=== PATIENT | male | born 1990 | race Two or more races ===

== ENCOUNTER 2020-07-23 22:11 | Inpatient (IN) | payer OTHER ==
[2020-07-23 22:35] VITALS: BMI 18.6
--- NOTE | 2020-07-23 22:50 | HP ---
COWS - Scale Resting Pulse: 0= [place] 80 or Below Sweatin= Chills/Flushing Restless Observation: 0= Sits Still Pupil Size: 0= Normal to Room Light Bone or Joint Aches: 4=Acute Joint/Muscle Pain Runny Nose/ Eye Tearin= Nasal Congestion GI Upset > 30mins: 0= None Tremor Observation: 0= None Yawning Observation: 1= 1-2x During Session Anxiety or Irritability: 2=Irritable/Anxious Goose Flesh Skin: 0=Smooth Skin COWS Score: 9 CIWA Score Nausea/Vomitin-No Nausea/No Vomiting Muscle Tremors: None Anxiety: 4-Mod. Anxious/Guarded Agitation: 3 Paroxysmal Sweats: 3 Orientation: 0-Oriented Tacttile Disturbances: 0-None Auditory Disturbances: 0-None Visual Disturbances: 0-None Headache: 5-Severe (10/10) CIWA-Ar Total Score: 15 - Admission Criteria OAS Guidelines: Admission for Medically Managed Detox: Requires at least one of the followin. CIWA greater than 12 2. Seizures within the past 24 hours 3. Delirium tremens within the past 24 hours 4. Hallucinations within the past 24 hours 5. Acute intervention needed for co occurring medical disorder 6. Acute intervention needed for co occurring psychiatric disorder 7. Severe withdrawal that cannot be handled at a lower level of care (continued vomiting, continued diarrhea, abnormal vital signs) requiring intravenous medication and/or fluids 8. Patient presents the following: CIWA greater than 12 Admission Criteria Met: Admission criteria met Admission ROS [facility] Chief Complaint: C/O WITHDRAWAL SX'S. SEEKING HEROIN AND XANAX DETOX. History of Present Illness: CLIENT IS SELF REFERRED. FIRST ADMISSION. PRESENTS WITH C/O WITHDRAWAL SX'S. CLIENT RPEORTS XANAX AND HEROIN DAILY. LAST USE THIS MORNING. DENIES IVDU, DRUG OVERDOSE, BLACKOUTS, SEIZURES. HX/O DETOX 1. "YEARS AGO". HE ALSO ABUSES COCA ND CANNABIS. DENIES ANY CLEAN TIME IN THE PAST YEAR, LIVES WITH FAMILY, UNEMPLOYED, DENIES LEGALS Exam Limitations: No Limitations - Ebola screening Have you traveled outside of the country in the last 21 days: No Have you had contact with anyone from an Ebola affected area: No Have you been sick,other than usual withdrawal symptoms: No Do you have a fever: No - Review of Systems Constitutional: Chills, Loss of Appetite, Malaise, Night Sweats, Changes in sleep, Unintentional Wgt. Loss EENT: reports: Nose Congestion Respiratory: reports: No Symptoms reported Cardiac: reports: No Symptoms Reported GI: reports: Poor Appetite : reports: No Symptoms Reported Musculoskeletal: reports: Back Pain Integumentary: reports: Flushing, Sweating Neuro: reports: Headache Endocrine: reports: No Symptoms Reported Hematology: reports: No Symptoms Reported Psychiatric: reports: Orientated x3, Anxious Other Systems: Reviewed and Negative Patient History - Patient Medical History Hx Anemia: No Hx Asthma: Yes Hx Chronic Obstructive Pulmonary Disease (COPD): No Hx Cancer: No Hx Cardiac Disorders: No Hx Congestive Heart Failure: No Hx Hypertension: No Hx Hypercholesterolemia: No Hx Pacemaker: No HX Cerebrovascular Accident: No Hx Seizures: No Hx Dementia: No Hx Diabetes: No Hx Gastrointestinal Disorders: No Hx Liver Disease: No Hx Genitourinary Disorders: No Hx Sexually Transmitted Disorders: Yes (CHLAMYDIA- TX'ED) Hx Renal Disease (ESRD): No Hx Thyroid Disease: No Hx Human Immunodeficiency Virus (HIV): No Hx Hepatitis C: No Hx Depression: No Hx Suicide Attempt: No Hx Bipolar Disorder: No Hx Schizophrenia: No Other Medical History: DENIES - Patient Surgical History Past Surgical History: No - PPD History Previous Implant?: Yes Documented Results: Negative w/o proof Implanted On Prior [facility] Admission?: No PPD to be Administered?: Yes - Smoking Cessation Smoking history: Current every day smoker Have you smoked in the past 12 months: Yes Aproximately how many cigarettes per day: 6 Cigars Per Day: 0 Hx Chewing Tobacco Use: No Initiated information on smoking cessation: Yes 'Breaking Loose' booklet given: 07/23/20 - Substance & Tx. History Hx Alcohol Use: No Hx Substance Use: Yes Substance Use Type: Cocaine, Heroin, Marijuana, Tranquilizers (XANAX) Hx Substance Use Treatment: Yes ([facility]) - Substances abused Heroin Substance route: Inhalation Frequency: Daily Amount used: 3GM Age of first use: 28 Date of last use: 07/23/20 Alprazolam (Xanax) Substance route: Oral Frequency: Daily Amount used: 6MG Age of first use: 29 Date of last use: 07/23/20 Cocaine Substance route: Inhalation Frequency: 3-6 times per week (3X) Amount used: 1/2 GM Age of first use: 27 Date of last use: 07/21/20 Marijuana/Hashish Substance route: Smoking Frequency: 1-3 times last 30 days (1) Amount used: 1 BLUNT Age of first use: 11 Date of last use: 07/22/20 Admission Physical Exam [facility] - Vital Signs Vital Signs: Vital Signs - 24 hr 07/23/20 22:33 Temperature 97 F L Pulse Rate 78 Respiratory 18 Rate Blood Pressure 114/72 - Physical General Appearance: Yes: Moderate Distress, Sweating, Anxious HEENTM: Yes: EOMI, Normocephalic, Normal Voice, ALTAGRACIA, Pharynx Normal, Nasal Congestion, Rhinorrhea Respiratory: Yes: Chest Non-Tender, Lungs Clear, Normal Breath Sounds, No Respiratory Distress, No Accessory Muscle Use Neck: Yes: No masses,lesions,Nodules, Supple, Trachea in good position Breast: Yes: Breasts Symetrical Cardiology: Yes: Regular Rhythm, S1, S2, Tachycardia Abdominal: Yes: Normal Bowel Sounds, Non Tender, Flat, Soft Genitourinary: Yes: Within Normal Limits Back: Yes: Normal Inspection Musculoskeletal: Yes: full range of Motion, Gait Steady Extremities: Yes: Normal Capillary Refill, Normal Inspection, Normal Range of Motion, Non-Tender Neurological: Yes: Fully Oriented, Alert, Motor Strength 5/5, Depressed Affect Integumentary: Yes: Clammy Lymphatic: Yes: Within Normal Limits - Diagnostic (1) Opioid dependence with withdrawal Current Visit: Yes Status: Acute (2) Cannabis dependence, uncomplicated Current Visit: Yes Status: Acute (3) Sedative, hypnotic or anxiolytic dependence with withdrawal, uncomplicated Current Visit: Yes Status: Acute (4) Cocaine dependence, uncomplicated Current Visit: Yes Status: Acute (5) Asthma Current Visit: Yes Status: Chronic Qualifiers: Asthma severity: mild Asthma persistence: intermittent Asthma complication type: uncomplicated Qualified Code(s): J45.20 - Mild intermittent asthma, uncomplicated (6) Nicotine dependence Current Visit: Yes Status: Chronic Qualifiers: Nicotine product type: cigarettes Substance use status: uncomplicated Qualified Code(s): F17.210 - Nicotine dependence, cigarettes, uncomplicated (7) Depressed affect Current Visit: Yes Status: Acute Cleared for Admission [facility] - Detox or Rehab [facility] Level of Care: Medically Managed Detox Regimen/Protocol: Methadone/Valium Claeared for Rehab Admission: No Breathalyzer - Breathalyzer Breathalyzer: 0 Urine Drug Screen - Test Device Lot number: [id number] Expiration date: 02/23/22 - Control Is test valid?: Yes - Results Drug screen NEGATIVE: No Urine drug screen results: THC-Marijuana, SAMMY-Cocaine, FEN-Fentanyl, MOP- Opiates, BZO-Benzodiazepines Inpatient Rehab Admission - Rehab Decision to Admit Inpatient rehab admission?: No
[2020-07-23] MEDS ORDERED: METHADONE HCL 10 MG TABLET (FOR DETOX USE ONLY) PO ONE (22:56)
[2020-07-23] MEDS ORDERED: MAG HYDROX/AL HYDROX/SIMETH 30 ML UNIT-DOSE CUP PO PRN (22:56)
[2020-07-23] MEDS ORDERED: IBUPROFEN 400 MG TABLET (FP) PO PRN (22:56)
[2020-07-23] MEDS ORDERED: NICOTINE POLACRILEX 2 MG GUM BUC PRN (22:56)
[2020-07-23] MEDS ORDERED: MAGNESIUM CITRATE 300 ML BOTTLE PO PRN (22:56)
[2020-07-23] MEDS ORDERED: guaiFENesin 200 MG/10 ML 10 ML UNIT-DOSE CUPS PO PRN (22:56)
[2020-07-23] MEDS ORDERED: NALOXONE HCL 0.4 MG/ML VIAL IM PRN (22:56)
[2020-07-23] MEDS ORDERED: MAGNESIUM HYDROX 2400MG/30ML ORAL SUSPENSION 30 ML CUP PO PRN (22:56)
[2020-07-23] MEDS ORDERED: DICYCLOMINE HCL 10 MG CAPSULE PO PRN (22:56)
[2020-07-23] MEDS ORDERED: MENTHOL/PHENOL 1 EACH UD MM PRN (22:56)
[2020-07-23] MEDS ORDERED: ACETAMINOPHEN 325 MG TABLET (FP) PO PRN ×2 (22:56)
[2020-07-23] MEDS ORDERED: cloNIDine HCL 0.1 MG TABLET PO PRN (22:56)
[2020-07-23] MEDS ORDERED: hydrOXYzine PAMOATE 25 MG CAPSULE (FP) PO PRN (22:56)
[2020-07-23] MEDS ORDERED: BISMUTH SUBSALICYLATE 524 MG/30 ML UD PO PRN (22:56)
[2020-07-23] MEDS ORDERED: P-EPHED 60MG/TRIPROLIDI 2.5MG TABLET PO PRN (22:56)
[2020-07-24] MEDS: diazePAM 5 MG TABLET PO SCH ×4 (01:15→22:17)
[2020-07-24] MEDS ORDERED: METHADONE HCL 10 MG TABLET (FOR DETOX USE ONLY) ONE (08:52)
[2020-07-24] MEDS ORDERED: METHADONE HCL 5 MG TABLET (FOR DETOX USE ONLY) ONE (08:52)
--- NOTE | 2020-07-24 08:55 | CONSULT ---
[facility] Psychiatric Consult - Data Date of interview: 07/24/20 Admission source: Self-referred Identifying data: Mr Hwang is a 30 years old single male, unemployed with no source, living with his mother seeking detox treatment for opioid, cocaine, benzodiazepine and cannabis Substance Abuse History: Reports history of heroin, cocaine, xanax and marijuana use. Refer to addiction counselor's summary for further information Medical History: Significant for bronchial asthma and history of treatment for chlamydia. Smokes 6 cigarettes daily Psychiatric History: This is patient's first admission to this facility. He denies history of previous psychiatric treatment, psychiatric hospitalization or suicide. At present, reports sleeping poorly Physical/Sexual Abuse/Trauma History: Denies history of abuse as a child or DV relationship as an adult Mental Status Exam - Mental Status Exam Alert and Oriented to: Time, Place, Person Cognitive Function: Fair Patient Appearance: Well Groomed Mood: Hopeful, Euthymic Affect: Appropriate Patient Behavior: Cooperative Speech Pattern: Clear Voice Loudness: Normal Thought Process: Intact Thought Disorder: Not Present Hallucinations: Denies Suicidal Ideation: Denies Homicidal Ideation: Denies Insight/Judgement: Poor Sleep: Poorly Appetite: Good Muscle strength/Tone: Normal Gait/Station: Normal Psychiatric Findings - Problem List ([place] 1, 2,3) (1) Substance-induced sleep disorder Current Visit: Yes Status: Acute (2) Opioid dependence with withdrawal Current Visit: Yes Status: Acute (3) Sedative, hypnotic or anxiolytic dependence with withdrawal, uncomplicated Current Visit: Yes Status: Acute (4) Cocaine abuse Current Visit: Yes Status: Acute (5) Cannabis abuse Current Visit: Yes Status: Acute (6) Nicotine dependence Current Visit: Yes Status: Chronic Qualifiers: Nicotine product type: cigarettes Substance use status: uncomplicated Qualified Code(s): F17.210 - Nicotine dependence, cigarettes, uncomplicated (7) Asthma Current Visit: Yes Status: Chronic Qualifiers: Asthma severity: mild Asthma persistence: intermittent Asthma complication type: uncomplicated Qualified Code(s): J45.20 - Mild intermittent asthma, uncomplicated - Initial Treatment Plan Initial Treatment Plan: 1) Start Melatonin 10 mg po HS prn for insomnia. 2) Continue inpatient detoxification
[2020-07-24] MEDS ORDERED: LOPERAMIDE HCL 2 MG CAPSULE PO ONE (09:43)
[2020-07-24] MEDS ORDERED: ALBUTEROL SO4 HFA INHALER IH PRN (09:47)
--- NOTE | 2020-07-24 09:47 | PN ---
S CIWA - CIWA Score Nausea/Vomitin-Mild Nausea/No Vomiting Muscle Tremors: 2 Anxiety: 2 Agitation: 0-Normal Activity Paroxysmal Sweats: 2 Orientation: 0-Oriented Tacttile Disturbances: 1-Very Mild Itch/Numbness Auditory Disturbances: 0-None Visual Disturbances: 2-Mild Sensitivity Headache: 2-Mild CIWA-Ar Total Score: 12 S COWS - Scale Resting Pulse: 0= [place] 80 or Below Sweatin= Chills/Flushing Restless Observation: 0= Sits Still Pupil Size: 1= Pupils >than Normal Bone or Joint Aches: 1= Mild Discomfort Runny Nose/ Eye Tearin= None GI Upset > 30mins: 2= Nausea/Diarrhea Tremor Observation of Outstretched Hands: 2= Slight Tremor Visible Yawning Observation: 0= None Anxiety or Irritability: 0= None Goose Flesh Skin: 3=Piloerection COWS Score: 10 S Progress Note (SOAP) Subjective: 30 years old male was admitted on 07/23/20 for benzo and opiate withdrawal sx management treating with valium and methadone detox regiments reports diarrhea x 2 imodium 4 mg po x 1 medical history of asthma resume ventolin prn bmi 18.6 ensure 120 ml po tid with meals Objective: 07/24/20 09:49 Vital Signs - 24 hr 07/23/20 07/23/20 07/24/20 22:33 23:12 06:13 Temperature 97 F L 97 F L 97.4 F L Pulse Rate 78 78 68 Respiratory 18 18 18 Rate Blood Pressure 114/72 114/72 98/61 O2 Sat by Pulse 96 Oximetry (%) 07/24/20 09:00 Temperature 98.2 F Pulse Rate 73 Respiratory 18 Rate Blood Pressure 96/59 L O2 Sat by Pulse Oximetry (%) 07/24/20 09:50 lab pending 07/24/20 09:51 low bp discontinue clonidine Assessment: 07/24/20 09:52 benzo and opiate withdrawal 07/24/20 09:53 hypotension Plan: valium and methadone regiments discontinue clonidine
[2020-07-24] MEDS ORDERED: METHADONE (DETOX) 20 MG, METHADONE (DETOX) 5 MG PO ONE (10:00)
[2020-07-24] MEDS: NICOTINE 14 MG/24 HOURS TOPICAL PATCH TD SCH (10:15)
[2020-07-24] MEDS: PRENATAL VITAMINS W/ FOLIC ACID TABLET (FP) PO SCH (10:15)
[2020-07-24 11:14] LABS: ALBUMIN 3.9 g/dl (3.4-5.0); BILIRUBIN,TOTAL 0.5 mg/dL (0.2-1); BLOOD UREA NITROGEN 13.8 mg/dL (7-18); CALCIUM 9.5 mg/dL (8.5-10.1); CREATININE 0.9 mg/dL (0.55-1.3); POTASSIUM 4.3 mmol/L (3.5-5.1); TOT PROT 7.6 g/dl (6.4-8.2)
[2020-07-24 11:35] LABS: HEMOGLOBIN 14.4 GM/dL (11.7-16.9); MCH 30.9 pg (25.7-33.7); MCHC 33.5 g/dl (32.0-35.9); MEAN CELL VOLUME 92.3 fl (80-96); MEAN PLT VOLUME 11.9 fl (7.5-11.1); PLATELET COUNT 185 K/MM3 (134-434); RBC 4.66 M/mm3 (4.00-5.60); RDW 13.1 % (11.9-15.9); WHITE BLOOD COUNT 5.9 K/mm3 (4.0-10.0)
--- NOTE | 2020-07-24 12:46 | EKG ---
Test Reason : Blood Pressure : / mmHG Vent. Rate : 071 BPM Atrial Rate : 071 BPM P-R Int : 148 ms QRS Dur : 092 ms QT Int : 404 ms P-R-T Axes : 060 -45 063 degrees QTc Int : 439 ms NORMAL SINUS RHYTHM LEFT ANTERIOR FASCICULAR BLOCK NONSPECIFIC ST ABNORMALITY ABNORMAL ECG NO PREVIOUS ECGS AVAILABLE Confirmed by Emeka Rene ([id number]) on 07/24/2020 12:45:50 PM Referred By: Confirmed By:Emeka Rene
[2020-07-24 18:53] LABS: PH,URINE 8.5 (5.0-8.0); URINE APPEARANCE CLOUDY; URINE BILIRUBIN NEGATIVE (NEGATIVE); URINE COLOR YELLOW; URINE GLUCOSE (UA) NEGATIVE (NEGATIVE); URINE KETONE NEGATIVE (NEGATIVE); URINE LEUK ESTERASE NEGATIVE (NEGATIVE); URINE NITRITE NEGATIVE (NEGATIVE); URINE PROTEIN NEGATIVE (NEGATIVE)
[2020-07-24] MEDS ORDERED: MELATONIN 5 MG TABLETS PO SCH (22:00)
[2020-07-24] MEDS: THIAMINE HCL 100 MG TABLET (FP) PO SCH (22:17)
[2020-07-24] MEDS: MELATONIN 5 MG TABLETS PO PRN (22:17)
[2020-07-25] MEDS: diazePAM 5 MG TABLET PO SCH ×2 (05:31→17:51)
[2020-07-25] MEDS ORDERED: METHADONE HCL 10 MG TABLET (FOR DETOX USE ONLY) PO ONE (10:00)
[2020-07-25] MEDS: PRENATAL VITAMINS W/ FOLIC ACID TABLET (FP) PO SCH (10:33)
[2020-07-25] MEDS: NICOTINE 14 MG/24 HOURS TOPICAL PATCH TD SCH (10:34)
--- NOTE | 2020-07-25 14:44 | PN ---
[facility] CIWA - CIWA Score Nausea/Vomitin-Mild Nausea/No Vomiting Muscle Tremors: 3 Anxiety: 3 Agitation: 2 Paroxysmal Sweats: No Perspiration Orientation: 0-Oriented Tacttile Disturbances: 1-Very Mild Itch/Numbness Auditory Disturbances: 0-None Visual Disturbances: 0-None Headache: 2-Mild CIWA-Ar Total Score: 12 S COWS - Scale Resting Pulse: 0= [place] 80 or Below Sweatin= No chills or Flushing Restless Observation: 0= Sits Still Pupil Size: 1= Pupils >than Normal Bone or Joint Aches: 2= Severe Diffuse Aches Runny Nose/ Eye Tearin= Runny Nose/Eyes GI Upset > 30mins: 1= Stomach Cramp Tremor Observation of Outstretched Hands: 1= Tremor [place], Not Seen Yawning Observation: 1= 1-2x During Session Anxiety or Irritability: 2=Irritable/Anxious Goose Flesh Skin: 0=Smooth Skin COWS Score: 10 [facility] Progress Note (SOAP) Subjective: alert,irritable,anxious,interrupted sleep,pain in the body and back Objective: 07/25/20 14:48 Vital Signs Temperature 97.3 F L 07/25/20 12:46 Pulse Rate 75 07/25/20 12:46 Respiratory Rate 18 07/25/20 12:46 Blood Pressure 110/67 07/25/20 12:46 O2 Sat by Pulse Oximetry (%) 97 07/25/20 12:46 Laboratory Last Values WBC 5.9 K/mm3 (4.0-10.0) 07/24/20 07:30 RBC 4.66 M/mm3 (4.00-5.60) 07/24/20 07:30 Hgb 14.4 GM/dL (11.7-16.9) 07/24/20 07:30 Hct 43.0 % (35.4-49) 07/24/20 07:30 MCV 92.3 fl (80-96) 07/24/20 07:30 MCH 30.9 pg (25.7-33.7) 07/24/20 07:30 MCHC 33.5 g/dl (32.0-35.9) 07/24/20 07:30 RDW 13.1 % (11.9-15.9) 07/24/20 07:30 Plt Count 185 K/MM3 (134-434) 07/24/20 07:30 MPV 11.9 fl (7.5-11.1) H 07/24/20 07:30 Sodium 137 mmol/L (136-145) 07/24/20 07:20 Potassium 4.3 mmol/L (3.5-5.1) 07/24/20 07:20 Chloride 101 mmol/L (98-107) 07/24/20 07:20 Carbon Dioxide 30 mmol/L (21-32) 07/24/20 07:20 Anion Gap 6 MMOL/L (8-16) L 07/24/20 07:20 BUN 13.8 mg/dL (7-18) 07/24/20 07:20 Creatinine 0.9 mg/dL (0.55-1.3) 07/24/20 07:20 Est GFR (CKD-EPI)AfAm 133.30 07/24/20 07:20 Est GFR (CKD-EPI)NonAf 115.01 07/24/20 07:20 Random Glucose 74 mg/dL (74-106) 07/24/20 07:20 Calcium 9.5 mg/dL (8.5-10.1) 07/24/20 07:20 Total Bilirubin 0.5 mg/dL (0.2-1) 07/24/20 07:20 AST 16 U/L (15-37) 07/24/20 07:20 ALT 22 U/L (13-61) 07/24/20 07:20 Alkaline Phosphatase 75 U/L (45-117) 07/24/20 07:20 Total Protein 7.6 g/dl (6.4-8.2) 07/24/20 07:20 Albumin 3.9 g/dl (3.4-5.0) 07/24/20 07:20 Urine Color Yellow 07/24/20 15:24 Urine Appearance Cloudy 07/24/20 15:24 Urine pH 8.5 (5.0-8.0) H 07/24/20 15:24 Ur Specific [place] 1.019 (1.010-1.035) 07/24/20 15:24 Urine Protein Negative (NEGATIVE) 07/24/20 15:24 Urine Glucose (UA) Negative (NEGATIVE) 07/24/20 15:24 Urine Ketones Negative (NEGATIVE) 07/24/20 15:24 Urine Blood Negative (NEGATIVE) 07/24/20 15:24 Urine Nitrite Negative (NEGATIVE) 07/24/20 15:24 Urine Bilirubin Negative (NEGATIVE) 07/24/20 15:24 Urine Urobilinogen 1.0 mg/dL (0.2-1.0) 07/24/20 15:24 Ur Leukocyte Esterase Negative (NEGATIVE) 07/24/20 15:24 Syphilis Serology Non-reactive (NONREACTIVE) 07/24/20 07:20 COVID-19 (RAN) Not detected (Not Detected) 07/23/20 22:59 Assessment: 07/25/20 14:53 withdrawal symptom Plan: continue detox methadone and valium regimen
[2020-07-25] MEDS: METHOCARBAMOL 500 MG TABLET PO PRN (21:45)
[2020-07-25] MEDS: THIAMINE HCL 100 MG TABLET (FP) PO SCH (21:45)
[2020-07-25] MEDS: diazePAM 5 MG TABLET PO PRN (21:45)
[2020-07-25] MEDS: MELATONIN 5 MG TABLETS PO PRN (21:45)
[2020-07-25] MEDS: ONDANSETRON *ODT* 4 MG TABLET SL PRN (23:38)
[2020-07-25] MEDS ORDERED: TRIMETHOBENZAMIDE HCL 200MG/2ML INJ IM ONE (23:50)
--- NOTE | 2020-07-25 23:51 | PN ---
[facility] Progress Note Note: Patient vomited x 2 Vital Signs Temperature 98.2 F 07/25/20 23:53 Pulse Rate 58 L 07/25/20 23:53 Respiratory Rate 16 07/25/20 23:53 Blood Pressure 119/73 07/25/20 23:53 O2 Sat by Pulse Oximetry (%) 97 07/25/20 23:53 Action: Trimethobenzamide injection (Tigan injection) 200mg IM ordered
[2020-07-26] MEDS ORDERED: diazePAM 5 MG TABLET PO ONE (06:00)
[2020-07-26] MEDS ORDERED: METHADONE HCL 10 MG TABLET (FOR DETOX USE ONLY) ONE (08:58)
[2020-07-26] MEDS ORDERED: METHADONE HCL 5 MG TABLET (FOR DETOX USE ONLY) ONE (08:59)
[2020-07-26] MEDS: ONDANSETRON *ODT* 4 MG TABLET SL PRN ×2 (09:04→18:47)
[2020-07-26] MEDS ORDERED: METHADONE (DETOX) 10 MG, METHADONE (DETOX) 5 MG PO ONE (10:00)
[2020-07-26] MEDS: METHOCARBAMOL 500 MG TABLET PO PRN (10:29)
[2020-07-26] MEDS: PRENATAL VITAMINS W/ FOLIC ACID TABLET (FP) PO SCH (10:34)
[2020-07-26] MEDS: NICOTINE 14 MG/24 HOURS TOPICAL PATCH TD SCH (10:34)
--- NOTE | 2020-07-26 11:14 | PN ---
[facility] CIWA - CIWA Score Nausea/Vomitin Muscle Tremors: 2 Anxiety: 2 Agitation: 2 Paroxysmal Sweats: No Perspiration Orientation: 0-Oriented Tacttile Disturbances: 1-Very Mild Itch/Numbness Auditory Disturbances: 0-None Visual Disturbances: 0-None Headache: 1-Very Mild CIWA-Ar Total Score: 11 S COWS - Scale Resting Pulse: 0= [place] 80 or Below Sweatin= No chills or Flushing Restless Observation: 0= Sits Still Pupil Size: 0= Normal to Room Light Bone or Joint Aches: 1= Mild Discomfort Runny Nose/ Eye Tearin= Nasal Congestion GI Upset > 30mins: 2= Nausea/Diarrhea Tremor Observation of Outstretched Hands: 2= Slight Tremor Visible Yawning Observation: 0= None Anxiety or Irritability: 2=Irritable/Anxious Goose Flesh Skin: 0=Smooth Skin COWS Score: 8 S Progress Note (SOAP) Subjective: alert,irritable,anxious,interrupted sleep,tremor,pain in the body and back Objective: 07/26/20 11:18 Vital Signs Temperature 98.6 F 07/26/20 08:52 Pulse Rate 63 07/26/20 08:52 Respiratory Rate 18 07/26/20 08:52 Blood Pressure 116/64 07/26/20 08:52 O2 Sat by Pulse Oximetry (%) 99 07/26/20 05:10 Assessment: 07/26/20 11:19 withdrawal symptom Plan: continue detox methadone and valium regimen
[2020-07-26] MEDS: diazePAM 5 MG TABLET PO PRN (22:30)
[2020-07-26] MEDS: THIAMINE HCL 100 MG TABLET (FP) PO SCH (23:47)
[2020-07-27] MEDS ORDERED: TRIMETHOBENZAMIDE HCL 200MG/2ML INJ IM PRN (09:15)
[2020-07-27] MEDS ORDERED: METHADONE HCL 10 MG TABLET (FOR DETOX USE ONLY) PO ONE (10:00)
--- NOTE | 2020-07-27 10:49 | PN ---
[facility] COWS - Scale Resting Pulse: 0= [place] 80 or Below Sweatin= No chills or Flushing Restless Observation: 0= Sits Still Pupil Size: 0= Normal to Room Light Bone or Joint Aches: 1= Mild Discomfort Runny Nose/ Eye Tearin= Nasal Congestion GI Upset > 30mins: 2= Nausea/Diarrhea Tremor Observation of Outstretched Hands: 1= Tremor [place], Not Seen Yawning Observation: 0= None Anxiety or Irritability: 2=Irritable/Anxious Goose Flesh Skin: 0=Smooth Skin COWS Score: 7 [facility] Progress Note (SOAP) Subjective: alert,irritable,pain in the body,extremity,poor appetite,vomiting,aching pain Objective: 07/27/20 10:48 Vital Signs Temperature 99.3 F 07/27/20 08:49 Pulse Rate 64 07/27/20 08:49 Respiratory Rate 18 07/27/20 08:49 Blood Pressure 113/71 07/27/20 08:49 O2 Sat by Pulse Oximetry (%) 97 07/27/20 06:27 Assessment: 07/27/20 10:48 withdrawal symptom Plan: continue detox methadone regimen,tigan 200 mgs im q 8hrs for nausea,vomiting,talent sourcer consultaion for nutritional supplement,discharge in am
[2020-07-27] MEDS: NICOTINE 14 MG/24 HOURS TOPICAL PATCH TD SCH (11:38)
[2020-07-27] MEDS: PRENATAL VITAMINS W/ FOLIC ACID TABLET (FP) PO SCH (11:39)
--- NOTE | 2020-07-27 11:51 | PN ---
[facility] Progress Note Note: patient vomited after taking po methadone 10 mgs ,this is after tigan injection will give methadone 5 mgs im now close monitoring
[2020-07-27] MEDS ORDERED: METHADONE DETOX 10 MG/1 ML [20ML VIAL] IM ONE (12:00)
[2020-07-27] MEDS: AMINO ACIDS/PROTEIN HYDROLYS 30 ML LIQUID.PKT PO SCH ×2 (14:24→18:26)
[2020-07-27] MEDS: THIAMINE HCL 100 MG TABLET (FP) PO SCH (22:45)
[2020-07-28] MEDS ORDERED: METHADONE HCL 5 MG TABLET (FOR DETOX USE ONLY) PO ONE (06:00)
[2020-07-28] MEDS: AMINO ACIDS/PROTEIN HYDROLYS 30 ML LIQUID.PKT PO SCH ×3 (08:02→17:56)
[2020-07-28] MEDS: PRENATAL VITAMINS W/ FOLIC ACID TABLET (FP) PO SCH (10:25)
[2020-07-28] MEDS: NICOTINE 14 MG/24 HOURS TOPICAL PATCH TD SCH (10:25)
--- NOTE | 2020-07-28 13:16 | PN ---
[facility] Progress Note Note: poor appetite periactin 4 mgs po tid,encourage oral fluid and nutrition,repeat cbc ,senior administrative support pending
[2020-07-28] MEDS ORDERED: CYPROHEPTADINE HCL 4 MG TABLET PO ONE (14:00)
[2020-07-28 17:29] LABS: HEMATOCRIT 53.6 % (35.4-49); HEMOGLOBIN 18.2 GM/dL (11.7-16.9); MCH 31.3 pg (25.7-33.7); MCHC 33.9 g/dl (32.0-35.9); MEAN CELL VOLUME 92.2 fl (80-96); MEAN PLT VOLUME 13.1 fl (7.5-11.1); PLATELET COUNT 230 K/MM3 (134-434); RBC 5.81 M/mm3 (4.00-5.60); RDW 13.5 % (11.9-15.9); WHITE BLOOD COUNT 12.7 K/mm3 (4.0-10.0)
[2020-07-28 17:31] VITALS: PULSE 66
[2020-07-28 17:43] LABS: ALBUMIN 4.6 g/dl (3.4-5.0); BILIRUBIN,TOTAL 1.5 mg/dL (0.2-1); CALCIUM 9.7 mg/dL (8.5-10.1); CREATININE 1.2 mg/dL (0.55-1.3); TOT PROT 9.2 g/dl (6.4-8.2)
[2020-07-28 17:47] LABS: BLOOD UREA NITROGEN 47.6 mg/dL (7-18)
[2020-07-28] MEDS: CYPROHEPTADINE HCL 4 MG TABLET PO SCH (17:52)
[2020-07-28] MEDS: THIAMINE HCL 100 MG TABLET (FP) PO SCH (22:27)
[2020-07-29] MEDS ORDERED: METHADONE HCL 5 MG TABLET (FOR DETOX USE ONLY) PO ONE (06:00)
[2020-07-29] MEDS: CYPROHEPTADINE HCL 4 MG TABLET PO SCH (06:04)
--- NOTE | 2020-07-29 06:57 | PN ---
[facility] Progress Note Note: Patient is very lethargic, weak, altered mental status, poor appetite, hallucinating, dehydrated, unable to stand up. he reports that he has no appetite and that he has been vomiting for a couple of days. Change in his EKG from prior EKG indicating T wave abnormality, consider anterior ischemia noted. Patient is to be transferred to ER for further evaluation. Endorsed to Dr. Ramon. Vital Signs Temperature 98.2 F 07/29/20 05:56 Pulse Rate 66 07/29/20 05:56 Respiratory Rate 18 07/29/20 05:56 Blood Pressure 125/85 07/29/20 05:56 O2 Sat by Pulse Oximetry (%) 97 07/29/20 05:56 Laboratory Last Values WBC 12.7 K/mm3 (4.0-10.0) H 07/28/20 11:15 RBC 5.81 M/mm3 (4.00-5.60) H 07/28/20 11:15 Hgb 18.2 GM/dL (11.7-16.9) H 07/28/20 11:15 Hct 53.6 % (35.4-49) H D 07/28/20 11:15 MCV 92.2 fl (80-96) 07/28/20 11:15 MCH 31.3 pg (25.7-33.7) 07/28/20 11:15 MCHC 33.9 g/dl (32.0-35.9) 07/28/20 11:15 RDW 13.5 % (11.9-15.9) 07/28/20 11:15 Plt Count 230 K/MM3 (134-434) D 07/28/20 11:15 MPV 13.1 fl (7.5-11.1) H D 07/28/20 11:15 Sodium 136 mmol/L (136-145) 07/28/20 11:15 Potassium 4.0 mmol/L (3.5-5.1) 07/28/20 11:15 Chloride 100 mmol/L (98-107) 07/28/20 11:15 Carbon Dioxide 25 mmol/L (21-32) 07/28/20 11:15 Anion Gap 10 MMOL/L (8-16) 07/28/20 11:15 BUN 47.6 mg/dL (7-18) H 07/28/20 11:15 Creatinine 1.2 mg/dL (0.55-1.3) 07/28/20 11:15 Est GFR (CKD-EPI)AfAm 94.14 07/28/20 11:15 Est GFR (CKD-EPI)NonAf 81.23 07/28/20 11:15 Random Glucose 99 mg/dL (74-106) 07/28/20 11:15 Calcium 9.7 mg/dL (8.5-10.1) 07/28/20 11:15 Total Bilirubin 1.5 mg/dL (0.2-1) H 07/28/20 11:15 AST 27 U/L (15-37) 07/28/20 11:15 ALT 27 U/L (13-61) 07/28/20 11:15 Alkaline Phosphatase 69 U/L (45-117) 07/28/20 11:15 Total Protein 9.2 g/dl (6.4-8.2) H 07/28/20 11:15 Albumin 4.6 g/dl (3.4-5.0) 07/28/20 11:15 Urine Color Yellow 07/24/20 15:24 Urine Appearance Cloudy 07/24/20 15:24 Urine pH 8.5 (5.0-8.0) H 07/24/20 15:24 Ur Specific [place] 1.019 (1.010-1.035) 07/24/20 15:24 Urine Protein Negative (NEGATIVE) 07/24/20 15:24 Urine Glucose (UA) Negative (NEGATIVE) 07/24/20 15:24 Urine Ketones Negative (NEGATIVE) 07/24/20 15:24 Urine Blood Negative (NEGATIVE) 07/24/20 15:24 Urine Nitrite Negative (NEGATIVE) 07/24/20 15:24 Urine Bilirubin Negative (NEGATIVE) 07/24/20 15:24 Urine Urobilinogen 1.0 mg/dL (0.2-1.0) 07/24/20 15:24 Ur Leukocyte Esterase Negative (NEGATIVE) 07/24/20 15:24 Syphilis Serology Non-reactive (NONREACTIVE) 07/24/20 07:20 COVID-19 (RAN) Not detected (Not Detected) 07/23/20 22:59 Action: -Ammonia level ordered -EKG ordered - Change in EKG noted - T wave abnormality, consider anterior ischemia -Evaluate patient in ER
[2020-07-29 07:02] VITALS: BP 125/85; TEMP 98.2
--- NOTE | 2020-07-29 09:00 | EKG ---
Test Reason : Blood Pressure : / mmHG Vent. Rate : 064 BPM Atrial Rate : 064 BPM P-R Int : 106 ms QRS Dur : 080 ms QT Int : 386 ms P-R-T Axes : 075 -65 083 degrees QTc Int : 398 ms POOR DATA QUALITY, INTERPRETATION MAY BE ADVERSELY AFFECTED SINUS RHYTHM WITH SHORT OK POSSIBLE LEFT ATRIAL ENLARGEMENT LEFT ANTERIOR FASCICULAR BLOCK NONSPECIFIC T WAVE ABNORMALITY ABNORMAL ECG WHEN COMPARED WITH ECG OF 23-JUL-2020 22:10, T WAVE INVERSION NOW EVIDENT IN ANTERIOR LEADS Confirmed by REGGIE ZAMORA MD ([id number]) on 07/29/2020 9:00:03 AM Referred By: Confirmed By:REGGIE ZAMORA MD
== END 2020-07-29 16:15 | disposition short-term general hospital (02) | DRG 773 ==
LOC: YASAS 22:11 → Y3N 23:11
PROVIDERS: ADMIT Allergy & Immunology; ATTEND Allergy & Immunology
PROC: HZ2ZZZZ Detoxification Services for Substance Abuse Treatment (ICD-10-PCS; principal; 2020-07-23)
DX: F11.23 Opioid dependence with withdrawal (principal); F13.230 Sedative, hypnotic or anxiolytic dependence with withdrawal, uncomplicated; F14.10 Cocaine abuse, uncomplicated; F12.10 Cannabis abuse, uncomplicated; F17.210 Nicotine dependence, cigarettes, uncomplicated; F19.282 Other psychoactive substance dependence with psychoactive substance-induced sleep disorder; I95.9 Hypotension, unspecified; J45.20 Mild intermittent asthma, uncomplicated; R94.31 Abnormal electrocardiogram [ECG] [EKG]; R41.82 Altered mental status, unspecified; Z56.0 Unemployment, unspecified
CPT/HCPCS: 36415; 80053; 81003; 82140; 85027; 86780; 93005; 93010; Q0162; U0003

== ENCOUNTER 2020-07-29 08:34 | Inpatient (IN) | payer OTHER ==
[2020-07-29] MEDS ORDERED: SODIUM CHLORIDE 1,000 ML IV ONE (08:42)
[2020-07-29 08:51] VITALS: BMI 18.6
[2020-07-29] MEDS ORDERED: LACTATED RINGERS SOLUTION 1000 ML INFUS.BAG IV ONE ×3 (08:59→11:47)
--- NOTE | 2020-07-29 09:05 | EKG ---
Test Reason : Blood Pressure : / mmHG Vent. Rate : 058 BPM Atrial Rate : 058 BPM P-R Int : 108 ms QRS Dur : 090 ms QT Int : 420 ms P-R-T Axes : 036 -64 084 degrees QTc Int : 412 ms SINUS BRADYCARDIA WITH SHORT AL LEFT ANTERIOR FASCICULAR BLOCK NONSPECIFIC ST AND T WAVE ABNORMALITY ABNORMAL ECG WHEN COMPARED WITH ECG OF 23-JUL-2020 22:10, AL INTERVAL HAS DECREASED Confirmed by REGGIE ZAMORA MD ([id number]) on 07/29/2020 9:05:18 AM Referred By: Confirmed By:REGGIE ZAMORA MD
--- NOTE | 2020-07-29 09:13 | PDOC ---
Attending Attestation - Resident Resident Name: Mathew Shen - ED Attending Attestation I have performed the following: I have examined & evaluated the patient, The case was reviewed & discussed with the resident, I agree w/resident's findings & plan, Exceptions are as noted - HPI HPI: 07/29/20 08:58 30y M hx of opiate abuse, cocaine abuse, xanax abuse sent to the ED for evaluation of AMS and abnormal EKG. The patient insists that he was in detox but left yesterday where he used fenanyl and heroin, where his girl had a baby that he was now taking care of. The patient states he was in detox for 5 days before leaving. He denies sharon fever/chlls, cp, sob, conklin, abd pain, diarrhea, dysuria,headache. Pt does insist that he is thirsty. Last urination this morning that was darker in color than usual. - Physicial Exam PE: 07/29/20 09:13 Physicial Exam GENERAL: The patient is awake, alert, and oriented x 3, Nontoxic - in no acute distress. HEAD: Normocephalic, atraumatic. EYES: extraocular movements intact, sclera anicteric, conjunctiva clear. ENT: Normal voice, dry mucous membranes. NECK: Normal range of motion, supple LUNGS: Breath sounds equal, clear to auscultation bilaterally. No wheezes, no rhonchi, no rales. HEART: Regular rate and rhythm, normal S1 and S2 without murmur, rub or gallop. ABDOMEN: Soft, nontender, No guarding, no rebound. No CVA tenderness EXTREMITIES: Normal range of motion, no edema. NEUROLOGICAL: No facial assymetry, Normal speech, PSYCH: Normal mood, normal affect. SKIN: Warm, Dry, normal turgor, - Medical Decision Making 07/29/20 09:27 suspect dehydration, ?uremia neuro intact will obtain labs fluids for hydration will reassess 07/29/20 13:11 lbas reviewed received hydration will obtain ct head will reasess Heart Score/ECG Review - ECG Impressions Comment:: 07/29/20 09:37 Twelve-lead EKG was performed and reviewed by me. There is normal sinus rhythm with rate of 58 Left anterior fascicular block T wave inversion in V2 and V3, these are new when compared with EKG dated July 23 Discharge - Discharge Information Problems reviewed: Yes Clinical Impression/Diagnosis: Opioid dependence with withdrawal Altered mental status Qualifiers: Altered mental status type: somnolence Qualified Code(s): R40.0 - Somnolence Condition: Fair Disposition: I.P. ALCOHOL/SUBS ABUSE REHAB - Follow up/Referral - Patient Discharge Instructions - Post Discharge Activity
[2020-07-29 09:19] LABS: BASO % 0.3 % (0-2.0); EOS % 0.1 % (0-4.5); HEMATOCRIT 52.9 % (35.4-49); HEMOGLOBIN 18.2 GM/dL (11.7-16.9); LYMPH % 14.9 % (8-40); MCH 31.4 pg (25.7-33.7); MCHC 34.5 g/dl (32.0-35.9); MEAN CELL VOLUME 91.1 fl (80-96); MEAN PLT VOLUME 11.3 fl (7.5-11.1); MONO % 8.9 % (3.8-10.2); NEUT % 75.8 % (42.8-82.8); PLATELET COUNT 227 K/MM3 (134-434)
[2020-07-29 09:27] LABS: VENOUS BASE EXCESS 0.4 mmol/L (-2-2); VENOUS O2 SATURATION 81.3 % (70-80); VENOUS PH 7.412 (7.310-7.410)
--- NOTE | 2020-07-29 10:07 | PDOC ---
History of Present Illness - General Stated Complaint: Revisit, Lab Variance Time Seen by Provider: 07/29/20 09:06 - History of Present Illness Initial Comments: 30 YOM h/o substance abuse presents from [facility] for EKG abnormalities and AMS. Patient appears altered during exam, unable to provide clear history however he reports that he presented to [facility] 5 days ago for detox however left yesterday briefly to use heroin which he learned was laced with fentanyl. Also reports that hos girlfriend gave yesterday at [facility] and he spent the evening caring for the baby. Per [facility] notes, patient had T wave abnormality on EKG yesterday as well as appearing altered and the decision was made to send him to the ED for eval. Notes also mention the patient has vomited. Patient denies CP, SOB, N/V/D, fever or chills. Past History - Medical History Allergies/Adverse Reactions: Allergies Allergy/AdvReac Type Severity Reaction Status Date / Time No Known Allergies Allergy Verified 07/29/20 08:52 Home Medications: Ambulatory Orders Albuterol Sulfate Inhaler - [Ventolin HFA Inhaler -] 2 puff IH QID PRN 07/24/20 Anemia: No Asthma: Yes Cancer: No Cardiac Disorders: No CVA: No COPD: No CHF: No Dementia: No Diabetes: No GI Disorders: No Disorders: No HTN: No Hypercholesterolemia: No Liver Disease: No Seizures: No Thyroid Disease: No - Psycho-Social/Smoking History Smoking History: Current every day smoker Have you smoked in the past 12 months: Yes Number of Cigarettes Smoked Daily: 20 Cigars Per Day: 0 Information on smoking cessation initiated: No 'Breaking Loose' booklet given: 07/23/20 - Substance Abuse Hx (Audit-C & DAST Scrn) How often the patient has a drink containing alcohol: 4 0r more times/wk Number of drinks the patient has on a typical day: 10 or more How often the patient has six or more drinks on one occasion: Weekly Score: In Men: 4 or > Positive; In Women: 3 or > Positive: 11 Screen Result (Pos requires Nsg. Audit-10AR): Positive In the last yr the pt used illegal drug/Rx for NonMed reason: Yes Score: Yes response is considered Positive: 1 Screen Result (Positive result requires Nsg. DAST-10): Positive Review of Systems - Review of Systems Constitutional: Yes: See HPI HEENTM: Yes: See HPI Respiratory: Yes: See HPI Cardiac (ROS): Yes: See HPI ABD/GI: Yes: See HPI : Yes: See HPI Musculoskeletal: Yes: See HPI Integumentary: Yes: See HPI Neurological: Yes: See HPI Endocrine: Yes: See HPI Hematologic/Lymphatic: Yes: See HPI *Physical Exam - Vital Signs Last Vital Signs Temp Pulse Resp BP Pulse Ox 98.4 F 64 18 132/90 96 07/29/20 08:35 07/29/20 08:35 07/29/20 08:35 07/29/20 08:35 07/29/20 08:35 - Physical Exam General Appearance: Yes: Nourished, Appropriately Dressed, Other (patient has rhinorrea, is lacrimating, speech is tangential ) HEENT: positive: EOMI, ALTAGRACIA, Other (rotary nystagmus) Neck: positive: Trachea midline, Normal Thyroid Respiratory/Chest: positive: Lungs Clear, Normal Breath Sounds Cardiovascular: positive: Regular Rhythm, Regular Rate, S1, S2 Gastrointestinal/Abdominal: positive: Normal Bowel Sounds, Flat, Soft Integumentary: positive: Normal Color, Dry, Warm Neurologic: positive: airport guide II-XII NML intact, Alert, Other (A and O x2) ED Treatment Course - LABORATORY CBC & Chemistry Diagram: 07/29/20 15:20 07/29/20 15:20 - ADDITIONAL ORDERS Additional order review: Laboratory Results 07/29/20 07/29/20 09:00 08:49 VBG pH 7.412 H POC VBG pCO2 40.0 POC VBG pO2 44.7 VBG HCO3 24.9 VBG O2 Sat (Madan) 81.3 H VBG Base Excess 0.4 POC Glucometer 96 07/29/20 07/29/20 09:00 08:49 RBC 5.80 H MCV 91.1 MCHC 34.5 RDW 13.0 MPV 11.3 H D Neutrophils % 75.8 Lymphocytes % 14.9 Monocytes % 8.9 Eosinophils % 0.1 Basophils % 0.3 POC Glucometer 96 - Medications Given in the ED: ED Medications Discontinued Medications Generic Name Dose Route Start Last Admin Trade Name Freq PRN Reason Stop Dose Admin Lactated Ringer's 1,000 ml 07/29/20 08:59 07/29/20 09:22 Lactated Ringers Solution IV 07/29/20 09:00 1,000 ml ONCE ONE Administration Medical Decision Making - Medical Decision Making 30 YOM h/o opiate abuse presents from [facility] for abnormal EKG and laboratory abnormalities. - Patient appears altered during interview, tangential speech, a and o x2 - Rhinorrhea and lacrimation consistent w/ opiate withdrawal - elevations in hematocrit, hemoglobin and WBCs likely 2/2 dehydration. - CK 1200s 07/29/20 18:13 - Patient is persistently somnolent which is changed from initial presentation - have given 3L LR and 1 L saline - Labs have largely normalized but patient remains somnolent - Will admit for AMS Discharge - Discharge Information Problems reviewed: Yes Clinical Impression/Diagnosis: Opioid dependence with withdrawal Condition: Fair - Admission Yes - Follow up/Referral - Patient Discharge Instructions - Post Discharge Activity
[2020-07-29 10:23] LABS: ALBUMIN 4.6 g/dl (3.4-5.0); ALK PHOS 62 U/L (45-117); ANION GAP 8 MMOL/L (8-16); BILIRUBIN,TOTAL 1.9 mg/dL (0.2-1); BLOOD UREA NITROGEN 45.9 mg/dL (7-18); CALCIUM 9.7 mg/dL (8.5-10.1); CHLORIDE 101 mmol/L (98-107); CO2 28 mmol/L (21-32); CREATININE 1.2 mg/dL (0.55-1.3); GLUCOSE,RANDOM 99 mg/dL (74-106); MAGNESIUM 3.1 mg/dL (1.8-2.4); POTASSIUM 4.1 mmol/L (3.5-5.1); SGOT/AST 32 U/L (15-37); SGPT/ALT 27 U/L (13-61); SODIUM 136 mmol/L (136-145); TOT PROT 9.2 g/dl (6.4-8.2)
[2020-07-29 15:42] LABS: BASO % 0.6 % (0-2.0); EOS % 0.1 % (0-4.5); HEMATOCRIT 47.6 % (35.4-49); HEMOGLOBIN 16.2 GM/dL (11.7-16.9); LYMPH % 24.4 % (8-40); MCH 31.3 pg (25.7-33.7); MCHC 34.1 g/dl (32.0-35.9); MEAN CELL VOLUME 91.8 fl (80-96); MEAN PLT VOLUME 11.8 fl (7.5-11.1); NEUT % 64.9 % (42.8-82.8); PLATELET COUNT 177 K/MM3 (134-434); RBC 5.18 M/mm3 (4.00-5.60); RDW 13.3 % (11.9-15.9)
[2020-07-29 16:14] LABS: BLOOD UREA NITROGEN 39.1 mg/dL (7-18); POTASSIUM 4.6 mmol/L (3.5-5.1)
--- NOTE | 2020-07-29 19:31 | PN ---
Teaching Attending Note Name of Resident: Lina Lin ATTENDING PHYSICIAN STATEMENT I saw and evaluated the patient. I reviewed the resident's note and discussed the case with the resident. I agree with the resident's findings and plan as documented. SUBJECTIVE: Patient is a 30 year old man with a PMH of Asthma, Tobacco use, Depression and P olysubstance abuse (Cocaine, Heroin, Marijuana, Xanax) sent to the ER from [facility] for evaluation of AMS and abnormal EKG. The patient insists that he was in detox but left yesterday where he used Fentanyl and Heroin. States he was in Detox for 5 days before leaving. Reports being thirsty. Last urination this morning that was darker in color than usual. Patient denies chest pain, shortness of breath, abdominal pain, headache, palpitations, dizziness, fever, chills, nausea, vomiting, diarrhea, constipation, dysuria, frequency, urgency, melena, hematochezia or hematuria. No sick contacts or recent travels. Family history is unremarkable. OBJECTIVE: Somnolent but arousable Vital Signs Period Temp Pulse Resp BP Sys/Smith Pulse Ox Last 24 Hr 97.7 F-98.4 F 60-64 16-18 118-140/46-90 96-100 HEENT: No Jaundice, eye redness or discharge, PERRLA, EOMI. Normocephalic, atraumatic. External ears are normal and hearing is grossly intact. No nasal discharge. Neck: Supple, nontender. No palpable adenopathy or thyromegaly. No JVD Chest: Good effort. Clear to auscultation and percussion. Heart: Regular. No S3, rub or murmur Abdomen: Not distended, soft, nontender and no HSM. No rebound or guarding. Normal bowel sounds. Ext: Peripheral pulses intact. No leg edema. Skin: Warm and dry. No petechiae, rash or ecchymosis. Neuro: Somnolent but arousable. Oriented x3. CN 2-12 grossly intact. Sensation grossly intact in all four extremities and DTR are symmetric. Psych: Appropriate mood and affect. Good insight. Home Medications Medication Instructions Recorded Albuterol Sulfate Inhaler - 2 puff IH QID PRN 07/24/20 [Ventolin HFA Inhaler -] Abnormal Lab Results 09/10/0707/29/20 07/29/20 09:00 09:00 09:00 WBC 16.0 H RBC 5.80 H Hgb 18.2 H Hct 52.9 H MPV 11.3 H D Absolute Neuts (auto) 12.1 H VBG pH 7.412 H VBG O2 Sat (Madan) 81.3 H BUN 45.9 H Magnesium 3.1 H Total Bilirubin 1.9 H Creatine Kinase 1239 H Total Protein 9.2 H 07/29/20 07/29/20 15:20 15:20 WBC 14.0 H RBC Hgb Hct MPV 11.8 H Absolute Neuts (auto) 9.1 H VBG pH VBG O2 Sat (Madan) BUN 39.1 H Magnesium Total Bilirubin Creatine Kinase Total Protein Current Medications Generic Name Dose Route Start Last Admin Trade Name Freq PRN Reason Stop Dose Admin Heparin Sodium (Porcine) 5,000 unit 07/30/20 22:00 Heparin - SQ TID ESTEFANI Folic Acid 1 mg/ Thiamine HCl 1,000 mls @ 125 mls/hr 07/29/20 20:26 100 mg/ Multivitamins/Minerals IVPB 07/30/20 04:25 10 ml/ Sodium Chloride ONCE ONE Lactated Ringer's 1,000 ml in 1,000 mls @ 75 mls/hr 07/29/20 20:30 Lactated Ringers Solution IV ASDIR [facility] ASSESSMENT AND PLAN: 1. Altered Mental Status/Abnormal EKG - Likely related to drug use, but will exclude an infection in view of leukocytosis. Also may be dehydrated. Urine toxicology, CXR and urinalysis pending. No evidence of acute intracranial pathology on noncontrast head CT scan. Viral testing for COVID-19 ordered and patient placed on airborne, droplet and contact isolation. EKG shows sinus bradycardia at 58/minute, LAFB and QTc 412 with new T wave change - flat T wave in I and T wave inversion in aVL, V1-V3 with no ischemic ST changes. S ignificantly changed compared to prior EKG from 07/23/2020. Initial troponin is negative. Will admit to telemetry, trend troponin, repeat EKG, hydrate with banana bag and LR, do neurochecks and implement fall/aspiration/seizure precautions. Monitor for drug withdrawal and consult certified technician specialist/PT/Neurology. Will monitor elevated magnesium, CPK and bilirubin. Will continue comprehensive care for all of patients comorbid conditions. 2. Tobacco Use Counseled on risks associated with tobacco use. We will provide patient all the necessary assistance to facilitate smoking cessation and pr escribe Nicotine patch. 3. DVT prophylaxis - Heparin 5000u sq tid. 4. Advance directives - Full code
[2020-07-29] MEDS ORDERED: FOLIC ACID INJECTION - 1 MG, THIAMINE HCL 100 MG, MULTIVIT INJECTION ADULT 10 ML in SOD... IVPB ONE (20:26)
--- NOTE | 2020-07-29 20:47 | HP ---
CHIEF COMPLAINT: AMS PCP: none HISTORY OF PRESENT ILLNESS: Patient is a 30 y/o male with past medical history of cocaine, heroin, and xanax abuse who presents from [facility] for AMS. At [facility] patient was altered and possibly hallucinating, an ekg was done and found new twave changes. On the 5th patients EKG showed and anterior fasicular block and again on the ekg today. Patient was not cooperative with exam. Patient has no complaints. Is oriented. COWS 0. At [facility] treated with methadone ER course was notable for: (1) LR x3 (2) (3) Recent Travel: denies PAST MEDICAL HISTORY: cocaine, heroin, and xanax , denies overdoses PAST SURGICAL HISTORY: Social History: Smoking: positive Alcohol: denies Drugs: cocaine, heroin, and xanax Allergies No Known Allergies Allergy (Verified 07/29/20 08:52) HOME MEDICATIONS: Home Medications Medication Instructions Recorded Albuterol Sulfate Inhaler - 2 puff IH QID PRN 07/24/20 [Ventolin HFA Inhaler -] REVIEW OF SYSTEMS denies all 10 ROS, uncooperative PHYSICAL EXAMINATION Vital Signs - 24 hr 07/29/20 07/29/20 07/29/20 08:35 13:26 13:32 Temperature 98.4 F 98.0 F Pulse Rate 64 Pulse Rate [ 64 61 Apical] Respiratory 18 16 18 Rate Blood Pressure 132/90 Blood Pressure [Left Arm] Blood Pressure 131/89 131/89 [Right Arm] O2 Sat by Pulse 96 100 100 Oximetry (%) 07/29/20 07/29/20 16:30 19:29 Temperature 97.7 F Pulse Rate Pulse Rate [ 63 60 Apical] Respiratory 18 18 Rate Blood Pressure Blood Pressure 118/84 [Left Arm] Blood Pressure 140/46 L [Right Arm] O2 Sat by Pulse 100 100 Oximetry (%) GENERAL: Awake, alert, and fully oriented HEAD: Normal with no signs of trauma. EYES: Pupils equal, round and reactive to light, extraocular movements intact, L eye with clear discharge EARS, NOSE, THROAT: dry mucous membranes. LUNGS: Breath sounds equal, clear to auscultation bilaterally. No wheezes, and no crackles. No accessory muscle use. HEART: Regular rate and rhythm, normal S1 and S2 without murmur, rub or gallop. ABDOMEN: Soft, nontender, not distended, normoactive bowel sounds, LOWER EXTREMITIES: No peripheral edema. NEUROLOGICAL: Normal speech. uncooperative with Cn II-XII exam SKIN: Warm, dry, normal turgor, no rashes or lesions noted, normal capillary refill. CBC, BMP 07/29/20 15:20 07/29/20 15:20 ASSESSMENT/PLAN: Patient is a 30 y/o male with past medical history of cocaine, heroin, and xanax abuse who is admitted for AMS. #AMS - unknown source, patient oriented but still somnolent on my exam - could be 2/2 to increased drug use, f/u Utox - patient was treated with Methadone at [facility] - Head CT: negative - r/o infectious causes, low suspicion without fever #mild leukocytosis - f/u UA and CXR - monitor for signs of infection - f/u CBC tomorrow #ekg changes - new t wave inversions in V2-V3 - repeat anterior vesicular block on second ekg, repeat ekg for the am - r/o SD with cocaine use - trop negative x1, f/u repeat - consider cardio consult if patient becomes symptomatic - anterior vesicular block can be managed as an outpatient if patient asymptomatic #elevated CK - trend tomorrow - conitinue fluids - could be 2/2 to drug use DVT ppx - heaprin tid FEN - banana bag x1 - LR @ 85 Dispo: monitor on tele Family Medical History Family History: Unable to Obtain Visit type - Emergency Visit Emergency Visit: Yes ED Registration Date: 07/29/20 Care time: The patient presented to the Emergency Department on the above date and was hospitalized for further evaluation of their emergent condition. - New Patient This patient is new to me today: Yes Date on this admission: 07/30/20 - Critical Care Critical Care patient: No ATTENDING PHYSICIAN STATEMENT I saw and evaluated the patient. I reviewed the resident's note and discussed the case with the resident. I agree with the resident's findings and plan as documented. SUBJECTIVE: OBJECTIVE: ASSESSMENT AND PLAN:
[2020-07-29] MEDS: LACTATED RINGERS SOLUTION 1,000 ML/1,000 ML INFUS.BAG IV SCH (22:17)
[2020-07-29 23:07] LABS: PH,URINE 6.5 (5.0-8.0); URINE APPEARANCE CLEAR; URINE BILIRUBIN NEGATIVE (NEGATIVE); URINE COLOR YELLOW; URINE GLUCOSE (UA) NEGATIVE (NEGATIVE); URINE KETONE 1+ (NEGATIVE); URINE LEUK ESTERASE NEGATIVE (NEGATIVE); URINE NITRITE NEGATIVE (NEGATIVE); URINE PROTEIN TRACE (NEGATIVE)
[2020-07-29 23:16] LABS: COCAINE, UR NEGATIVE ng/ml (CUTOFF=300); OPIATES, URI NEGATIVE ng/ml (CUTOFF=300); PHENCYCLIDINE,URINE NEGATIVE ng/ml (CUTOFF=25); URINE AMPHETAMINES NEGATIVE ng/ml (CUTOFF=500)
[2020-07-29 23:18] LABS: URINE BARBITURATES NEGATIVE ng/ml (CUTOFF=200)
[2020-07-29 23:21] LABS: METHADONE, UR POSITIVE ng/ml (CUTOFF=300); URINE BENZODIAZEPINES POSITIVE ng/ml (CUTOFF=200)
[2020-07-30] MEDS: LACTATED RINGERS SOLUTION 1,000 ML/1,000 ML INFUS.BAG IV SCH ×3 (06:22→21:09)
[2020-07-30 08:10] LABS: BASO % 0.6 % (0-2.0); EOS % 1.2 % (0-4.5); HEMATOCRIT 42.2 % (35.4-49); HEMOGLOBIN 14.2 GM/dL (11.7-16.9); LYMPH % 33.6 % (8-40); MCH 30.8 pg (25.7-33.7); MCHC 33.8 g/dl (32.0-35.9); MEAN CELL VOLUME 91.1 fl (80-96); MEAN PLT VOLUME 12.1 fl (7.5-11.1); MONO % 9.4 % (3.8-10.2); NEUT % 55.2 % (42.8-82.8); PLATELET COUNT 167 K/MM3 (134-434); RBC 4.63 M/mm3 (4.00-5.60); RDW 12.8 % (11.9-15.9); WHITE BLOOD COUNT 9.1 K/mm3 (4.0-10.0)
[2020-07-30 08:27] LABS: ALBUMIN 3.4 g/dl (3.4-5.0); BILIRUBIN,TOTAL 1.4 mg/dL (0.2-1); BLOOD UREA NITROGEN 32.6 mg/dL (7-18); CALCIUM 8.9 mg/dL (8.5-10.1); CREATININE 0.8 mg/dL (0.55-1.3); MAGNESIUM 2.5 mg/dL (1.8-2.4); POTASSIUM 3.8 mmol/L (3.5-5.1)
[2020-07-30 08:33] LABS: TOT PROT 6.7 g/dl (6.4-8.2)
--- NOTE | 2020-07-30 08:51 | CON.CARD ---
Consult Consult Specialty:: cardio - History of Present Illness Chief Complaint: abnormal ekg History of Present Illness: 30 y/o male with past medical history of cocaine, heroin, and xanax abuse who presents from [facility] for AMS. At [facility] patient was altered and possibly hallucinating. ekg was done and found new twave changes, anterior fasicular block currently calm, watching TV, following requests denies cp, sob, palp, leg swelling - Alcohol/Substance Use Hx Alcohol Use: No - Smoking History Smoking history: Current every day smoker Have you smoked in the past 12 months: Yes Aproximately how many cigarettes per day: 6 Home Medications - Allergies Allergies/Adverse Reactions: Allergies Allergy/AdvReac Type Severity Reaction Status Date / Time No Known Allergies Allergy Verified 07/29/20 08:52 - Home Medications Home Medications: Ambulatory Orders Albuterol Sulfate Inhaler - [Ventolin HFA Inhaler -] 2 puff IH QID PRN 07/24/20 Family Medical History Family History: Denies (no known cp) Review of Systems - Review of Systems Constitutional: denies: Chills, Fever Eyes: denies: Eye Pain HENT: denies: Nasal Congestion Neck: denies: Stiffness Cardiovascular: denies: Palpitations Respiratory: denies: Orthopnea, PND Gastrointestinal: denies: Diarrhea, Rectal Bleeding Genitourinary: denies: Burning, Hematuria Musculoskeletal: denies: Muscle Pain Integumentary: denies: Rash Neurological: denies: Numbness, Seizure, Syncope Endocrine: denies: Excessive Sweating Hematology/Lymphatic: denies: Excessive Bleeding Vital Signs: Vital Signs Temperature 99.5 F 07/30/20 05:00 Pulse Rate 55 L 07/30/20 05:00 Respiratory Rate 16 07/30/20 05:00 Blood Pressure 130/85 07/30/20 05:00 O2 Sat by Pulse Oximetry (%) 100 07/30/20 05:00 Constitutional: Yes: Well Nourished, No Distress Eyes: No: Sclera Icterus HENT: No: Nasal Congestion Neck: No: Decreased ROM Respiratory: Yes: CTA Bilaterally. No: Accessory Muscle Use, Rales, Wheezes Gastrointestinal: Yes: Normal Bowel Sounds. No: Distention, Hepatomegaly, Pal pable Mass, Tenderness Cardiovascular: Yes: Regular Rate and Rhythm JVD: No Carotid Bruit: No PMI: Non-Displaced Heart Sounds: Yes: S1, S2. No: Gallop Murmur: No: Systolic Murmur, Diastolic Murmur Musculoskeletal: Yes: Other (No kyphosis) Extremities: No: Cold, Cool, Cyanosis Edema: No Peripheral Pulses: 2+ Left Carotid, 2+ Right Carotid, 2+ Left Doralis Pedis, 2+ Right Dorsalis Pedis Integumentary: No: Jaundice Neurological: Yes: Alert. No: Seizure Psychiatric: No: Agitated - Other Data Labs, Other Data: CBC, BMP 07/30/20 07:04 07/30/20 07:04 Troponin, BNP 07/29/20 07/29/20 09:00 21:00 Troponin I < 0.02 < 0.02 Troponin, BNP 07/29/20 07/29/20 09:00 21:00 Troponin I < 0.02 < 0.02 Assessment/Plan ECG 07/29: NSR, LAFB, NSTWAs (deep inverion V3). prolonged QT (manual 544 msec) T waves and QT normal on 07/23 marked changes in T waves and QT interval vs 07/23: -nonspecific finding -not explained by electrolytes (all well-repleted) -possibly methadone effect (known to prolong QT)--on hold here -trop neg x 2 -cocaine abuse is risk factor for cardiomyopathy--should have echo to evaluate EF, this should not be deferred to outpatient given signif arrhythmia risks if EF is markedly declined. however if EKG normalizes here off methadone, then echo can safely be deferred to outpt -stress test not indicated unless ischemic sx's arise substance abuse: -per hospitalist team
--- NOTE | 2020-07-30 10:44 | CONSULT ---
Consult Detox [facility] Reason for Current Admission/Consult: Substance use Referred by:: Ralph Keyes - History History of Present Illness: Patient is a 30 year old male with history of self report opioid dependence with concomittant sedative dependence, cocaine use disorder, cannabis use disorder, and nicotine dependence who was admitted to [facility] on 07/23/2020 and completed detox and transferred in house to rehab at [facility] until he started having chest pain and nausea and changes noted on his EKG that were new. Substance & Tx. History Hx Alcohol Use: No Hx Substance Use: Yes Substance Use Type: Cocaine, Heroin, Marijuana, Tranquilizers (XANAX) Hx Substance Use Treatment: Yes ([facility]) - Substances abused Heroin Substance route: Inhalation Frequency: Daily Amount used: 3GM Age of first use: 28 Date of last use: 07/23/20 Alprazolam (Xanax) Substance route: Oral Frequency: Daily Amount used: 6MG Age of first use: 29 Date of last use: 07/23/20 Cocaine Substance route: Inhalation Frequency: 3-6 times per week (3X) Amount used: 1/2 GM Age of first use: 27 Date of last use: 07/21/20 Marijuana/Hashish Substance route: Smoking Frequency: 1-3 times last 30 days (1) Amount used: 1 BLUNT Age of first use: 11 Date of last use: 07/22/20 Patient 0n 07/29/20 in management advisor was very lethargic, weak, altered mental status, poor appetite, hallucinating, dehydrated, unable to stand up. He reports that he has no appetite and that he has been vomiting for a couple of days. Change in his EKG from prior EKG indicating T wave abnormality, consider anterior ischemia noted. Patient was then transferred to ER for further evaluationat [facility]. Endorsed to Dr. Ramon. ECG 07/29: NSR, LAFB, NSTWAs (deep inverion V3). prolonged QT (manual 544 msec) T waves and QT normal on 07/23 marked changes in T waves and QT interval vs 07/23: -nonspecific finding -not explained by electrolytes (all well-repleted) -possibly methadone effect (known to prolong QT)--on hold here -trop neg x 2 - History Source History Provided By: Patient, Transfer Record Limitations to Obtaining History: No Limitations - Alcohol/Substance Use Hx Alcohol Use: No Hx Substance Use: Yes Hx Substance Use Treatment: Yes (first time in treatment) - Significant Medical Findings: Vital Signs - 24 hr 07/29/20 07/29/20 07/29/20 08:35 13:26 13:32 Temperature 98.4 F 98.0 F Pulse Rate 64 Pulse Rate [ 64 61 Apical] Respiratory 18 16 18 Rate Blood Pressure 132/90 Blood Pressure [Left Arm] Blood Pressure 131/89 131/89 [Right Arm] O2 Sat by Pulse 96 100 100 Oximetry (%) 07/29/20 07/29/20 16:30 19:29 Temperature 97.7 F Pulse Rate Pulse Rate [ 63 60 Apical] Respiratory 18 18 Rate Blood Pressure Blood Pressure 118/84 [Left Arm] Blood Pressure 140/46 L [Right Arm] O2 Sat by Pulse 100 100 Oximetry (%) GENERAL: Awake, alert, and fully oriented HEAD: Normal with no signs of trauma. EYES: Pupils equal, round and reactive to light, extraocular movements intact, L eye with clear discharge EARS, NOSE, THROAT: dry mucous membranes. LUNGS: Breath sounds equal, clear to auscultation bilaterally. No wheezes, and no crackles. No accessory muscle use. HEART: Regular rate and rhythm, normal S1 and S2 without murmur, rub or gallop. ABDOMEN: Soft, nontender, not distended, normoactive bowel sounds, LOWER EXTREMITIES: No peripheral edema. NEUROLOGICAL: Normal speech. uncooperative with Cn II-XII exam SKIN: Warm, dry, normal turgor, no rashes or lesions noted, normal capillary refill. CBC, BMP 07/29/20 15:20 07/29/20 15:20 Assessment Plan - Diagnosis (1) Sedative dependence Status: Acute (2) Cannabis abuse Status: Acute (3) Cocaine abuse Status: Acute (4) Asthma Status: Chronic Qualifiers: Asthma severity: mild Asthma persistence: intermittent Asthma complication type: uncomplicated Qualified Code(s): J45.20 - Mild intermittent asthma, uncomplicated (5) Nicotine dependence Status: Chronic Qualifiers: Nicotine product type: cigarettes Substance use status: uncomplicated Qualified Code(s): F17.210 - Nicotine dependence, cigarettes, uncomplicated - Plan Plan: 1. Polysubstance use: When patient is medically stable as he's already ruled out AMS. Follow cardiology recommendations. He was already on rehab and can return if he is medically stable to complete it at [facility]. Dr. Wills
[2020-07-30] MEDS ORDERED: hydrOXYzine PAMOATE 25 MG CAPSULE (FP) PO PRN (11:56)
[2020-07-30] MEDS ORDERED: METHADONE HCL 10 MG TABLET PO ONE (12:03)
--- NOTE | 2020-07-30 12:07 | PN ---
Physical Exam: SUBJECTIVE: Patient seen and examined at bedside. pt states he feels very weak and unwell. he is wearing a diaper bc he does not have energy to get out of bed. nausea. OBJECTIVE: Vital Signs Period Temp Pulse Resp BP Sys/Smith Pulse Ox Last 24 Hr 97.7 F-99.9 F 55-101 16-18 101-140/46-89 97-100 GENERAL: The patient is awake, alert, and fully oriented, in no acute distress. HEAD: Normal with no signs of trauma. EYES: PERRL, pupils dilated,extraocular movements intact NECK: Trachea midline, full range of motion, supple. LUNGS: Breath sounds equal, clear to auscultation bilaterally, no accessory muscle use. HEART: Regular rate and rhythm, S1, S2 without murmur ABDOMEN: Soft, nontender, nondistended, normoactive bowel sounds, no guarding EXTREMITIES: 2+ pulses, warm, well-perfused, no edema. NEUROLOGICAL: Cranial nerves II through XII grossly intact. SKIN: diaphoretic COWS 11; tremulous tongue, diaphoretic, pupils dilated, stomach cramping/nausea/ diarrhea CBC, BMP 07/30/20 07:04 07/30/20 07:04 Active Medications Generic Name Dose Route Start Last Admin Trade Name Freq PRN Reason Stop Dose Admin Azithromycin 1 drop 07/30/20 12:15 Azasite 1% Ophth Soln - OU BID [facility] Heparin Sodium (Porcine) 5,000 unit 07/30/20 22:00 Heparin - SQ TID [facility] Hydroxyzine Pamoate 25 mg 07/30/20 11:56 Vistaril - PO Q6H PRN FOR ITCHING Lactated Ringer's 1,000 ml in 1,000 mls @ 75 mls/hr 07/29/20 20:30 07/30/20 06:22 Lactated Ringers Solution IV 75 mls/hr ASDIR [facility] Administration Methadone HCl 20 mg 07/30/20 12:03 Dolophine - PO 07/30/20 12:04 ONCE ONE Thiamine HCl 100 mg 07/31/20 10:00 Vitamin B1 - PO DAILY [facility] ASSESSMENT/PLAN: 30 yo M PMH of polysubstance abuse (cocaine, heroin, and xanax) who is admitted for acute toxic metabolic encephalopathy , EKG changes. Acute toxic metabolic encephalopathy 2/2 BZO, Heroin withdrawal - COWS 11 - Dr. Wills consulted and aware - will start vistaril - will give methadone 20 mg now, and taper - head CT negative - Utox noted, but was on mtd and valium at PC - leukocytosis resolved, afebrile - UA negative - ammonia level resolved. 133--> 24.3 EKG changes - TWI V2, V3. pending rpt - cardio recs appreciated - no events noted on tele monitor. cont tele - trop neg x 2 - Echo pending acute rhabdo - CK downtrending - c/w IVF Eye crusting -will start azasite DVT ppx: heparin tid FEN -LR @ 100 /hr - monitor lytes -regular diet Dispo: monitor on tele ATTENDING PHYSICIAN STATEMENT I saw and evaluated the patient. I reviewed the resident's note and discussed the case with the resident. I agree with the resident's findings and plan as documented. SUBJECTIVE: OBJECTIVE: ASSESSMENT AND PLAN:
[2020-07-30] MEDS: AZITHROMYCIN 1% OPHTH SOLN 1 BOTTLE OU SCH ×2 (12:53→21:08)
--- NOTE | 2020-07-30 13:43 | PN ---
Teaching Attending Note Name of Resident: Lizz Manriquez ATTENDING PHYSICIAN STATEMENT I saw and evaluated the patient. I reviewed the resident's note and discussed the case with the resident. I agree with the resident's findings and plan as documented. SUBJECTIVE: Complains of abdominal pain. No nausea/vomiting. NO fever/chills. OBJECTIVE: Tmax 99.9, Hemodynamically Stable. Tremor of outstretched arms, tongue fasiculations Last Vital Signs Temp Pulse Resp BP Pulse Ox 99.3 F 59 L 16 123/59 L 100 07/30/20 10:00 07/30/20 10:00 07/30/20 10:00 07/30/20 10:00 07/30/20 10:00 HEENT - Atraumatic, Normocephalic. L eye crusty discharge Heart - S1, S2, RRR Lungs - clear to auscultation Abdomen - Soft, mild generalized tenderness. Bowel Sounds normal. Extremities - Tremor UEs, no LE edema/calf tenderness. Neuro - AAO x 3. Tone/Power normal all extremities. Laboratory Results - last 24 hr 07/29/20 07/29/20 07/29/20 12:40 15:20 15:20 WBC 14.0 H RBC 5.18 Hgb 16.2 Hct 47.6 MCV 91.8 MCH 31.3 MCHC 34.1 RDW 13.3 Plt Count 177 D MPV 11.8 H Absolute Neuts (auto) 9.1 H Neutrophils % 64.9 Lymphocytes % 24.4 D Monocytes % 10.0 Eosinophils % 0.1 Basophils % 0.6 Nucleated RBC % 0 Sodium 138 Potassium 4.6 Chloride 105 Carbon Dioxide 25 Anion Gap 8 BUN 39.1 H Creatinine 1.0 Est GFR (CKD-EPI)AfAm 117.36 Est GFR (CKD-EPI)NonAf 101.26 Random Glucose 91 Calcium 9.0 Phosphorus Magnesium Total Bilirubin AST ALT Alkaline Phosphatase Creatine Kinase Creatine Kinase Index CK-MB (CK-2) Troponin I Total Protein Albumin Urine Color Urine Appearance Urine pH Ur Specific [place] Urine Protein Urine Glucose (UA) Urine Ketones Urine Blood Urine Nitrite Urine Bilirubin Urine Urobilinogen Ur Leukocyte Esterase Opiates Screen Methadone Screen Barbiturate Screen Phencyclidine Screen Ur Amphetamines Screen MDMA (Ecstasy) Screen Benzodiazepines Screen Cocaine Screen U Marijuana (THC) Screen HIV Ag/Ab Combo Qual Negative 0907/29/20 07/29/20 21:00 22:00 22:00 WBC RBC Hgb Hct MCV MCH MCHC RDW Plt Count MPV Absolute Neuts (auto) Neutrophils % Lymphocytes % Monocytes % Eosinophils % Basophils % Nucleated RBC % Sodium Potassium Chloride Carbon Dioxide Anion Gap BUN Creatinine Est GFR (CKD-EPI)AfAm Est GFR (CKD-EPI)NonAf Random Glucose Calcium Phosphorus Magnesium Total Bilirubin AST ALT Alkaline Phosphatase Creatine Kinase Creatine Kinase Index CK-MB (CK-2) Troponin I < 0.02 Total Protein Albumin Urine Color Yellow Urine Appearance Clear Urine pH 6.5 D Ur Specific [place] 1.030 Urine Protein Trace Urine Glucose (UA) Negative Urine Ketones 1+ H Urine Blood Negative Urine Nitrite Negative Urine Bilirubin Negative Urine Urobilinogen 1.0 Ur Leukocyte Esterase Negative Opiates Screen Negative Methadone Screen Positive A* Barbiturate Screen Negative Phencyclidine Screen Negative Ur Amphetamines Screen Negative MDMA (Ecstasy) Screen Negative Benzodiazepines Screen Positive A* Cocaine Screen Negative U Marijuana (THC) Screen Negative HIV Ag/Ab Combo Qual 07/30/20 07/30/20 07/30/20 07:04 07:04 07:04 WBC 9.1 RBC 4.63 Hgb 14.2 Hct 42.2 MCV 91.1 MCH 30.8 MCHC 33.8 RDW 12.8 Plt Count 167 MPV 12.1 H Absolute Neuts (auto) 5.0 Neutrophils % 55.2 Lymphocytes % 33.6 D Monocytes % 9.4 Eosinophils % 1.2 D Basophils % 0.6 Nucleated RBC % 0 Sodium 140 Potassium 3.8 Chloride 107 Carbon Dioxide 25 Anion Gap 8 BUN 32.6 H Creatinine 0.8 Est GFR (CKD-EPI)AfAm 139.91 Est GFR (CKD-EPI)NonAf 120.72 Random Glucose 80 Calcium 8.9 Phosphorus 3.0 Magnesium 2.5 H Total Bilirubin 1.4 H AST 24 ALT 21 Alkaline Phosphatase 46 Creatine Kinase 753 H Creatine Kinase Index 0.1 CK-MB (CK-2) 1.0 Troponin I < 0.02 Total Protein 6.7 Albumin 3.4 Urine Color Urine Appearance Urine pH Ur Specific [place] Urine Protein Urine Glucose (UA) Urine Ketones Urine Blood Urine Nitrite Urine Bilirubin Urine Urobilinogen Ur Leukocyte Esterase Opiates Screen Methadone Screen Barbiturate Screen Phencyclidine Screen Ur Amphetamines Screen MDMA (Ecstasy) Screen Benzodiazepines Screen Cocaine Screen U Marijuana (THC) Screen HIV Ag/Ab Combo Qual Current Medications Generic Name Dose Route Start Last Admin Trade Name Freq PRN Reason Stop Dose Admin Azithromycin 1 drop 07/30/20 12:15 07/30/20 12:53 Azasite 1% Ophth Soln - OU 1 drop BID [facility] Administration Heparin Sodium (Porcine) 5,000 unit 07/30/20 22:00 Heparin - SQ TID [facility] Hydroxyzine Pamoate 25 mg 07/30/20 11:56 Vistaril - PO Q6H PRN FOR ITCHING Lactated Ringer's 1,000 ml in 1,000 mls @ 75 mls/hr 07/29/20 20:30 07/30/20 06:22 Lactated Ringers Solution IV 75 mls/hr ASDIR [facility] Administration Thiamine HCl 100 mg 07/31/20 10:00 Vitamin B1 - PO DAILY [facility] Home Medications Medication Instructions Recorded Albuterol Sulfate Inhaler - 2 puff IH QID PRN 07/24/20 [Ventolin HFA Inhaler -] ASSESSMENT AND PLAN: 30 year old Male with history of Polysubstance Abuse (cocaine, heroin, xanax), sent from [facility] with AMS and hallucinations, with new T wave changes. 1. Acute Toxic Metabolic Encephalopathy/Drug Withdrawal CT Head - no acute findings. Utox pos for Methadone and Benzodiazepines. Discussed with Addiction Medicine - to resume Methadone taper for opiate withdrawals. 2. Non-specific ECG changes ?etiology No chest pain TropI neg x 3 CXR - no acute findings Evaluated by Cardio - for Echo on Wednesday 08/01 Continue Telemonitoring. 3. Acute Rhabdomyolysis - CPK improving with IV fluids. Will monitor electrolytes and renal function. DVT Px - Heparin SQ
--- NOTE | 2020-07-30 18:02 | PN ---
[facility] Progress Note (SOAP) Subjective: Request from resident to manage patient with possible continued opiate and sedative withdrawals Objective: 07/30/20 18:00 COWS as per resident at 11 Assessment: 07/30/20 18:00 Opioid Dependence and Sedative Dependence with withdrawals: Plan: 1. Discussed with resident to add vistaril prn doses for patient's anxiety symptoms 2. Add moderate dose of Methadone 20 mg today followed by taper with 10mg tomorrow and 5 mg for last day of taper. Dr. Wills
[2020-07-30] MEDS: HEPARIN NA (PORCINE) 5,000 UNITS/ML 1ML VIAL SQ SCH (21:09)
[2020-07-31] MEDS: HEPARIN NA (PORCINE) 5,000 UNITS/ML 1ML VIAL SQ SCH ×2 (05:57→15:06)
[2020-07-31 08:25] LABS: HEMOGLOBIN 13.9 GM/dL (11.7-16.9); MCH 30.9 pg (25.7-33.7); MEAN CELL VOLUME 90.7 fl (80-96); PLATELET COUNT 141 K/MM3 (134-434); RBC 4.52 M/mm3 (4.00-5.60); RDW 12.7 % (11.9-15.9); WHITE BLOOD COUNT 8.1 K/mm3 (4.0-10.0)
[2020-07-31 08:41] LABS: BLOOD UREA NITROGEN 22.3 mg/dL (7-18); CALCIUM 8.7 mg/dL (8.5-10.1); CREATININE 0.8 mg/dL (0.55-1.3); MAGNESIUM 1.2 mg/dL (1.8-2.4); PHOSPHOROUS 3.2 mg/dL (2.5-4.9); POTASSIUM 3.9 mmol/L (3.5-5.1)
[2020-07-31] MEDS ORDERED: METHADONE HCL 10 MG TABLET PO ONE (09:00)
[2020-07-31] MEDS: AZITHROMYCIN 1% OPHTH SOLN 1 BOTTLE OU SCH (09:02)
[2020-07-31] MEDS ORDERED: THIAMINE HCL 100 MG TABLET (FP) PO SCH (10:00)
[2020-07-31] MEDS ORDERED: MAGNESIUM 2GM/50ML STERILE WATER IVPB IVPB ONE (10:00)
--- NOTE | 2020-07-31 11:00 | PN ---
Progress Note, Physician Chief Complaint: abnl ekg History of Present Illness: denies cp, sob, palp, dizzy (shakes head, not talking) - Current Medication List Current Medications: Active Medications Azithromycin (Azasite 1% Ophth Soln -) 1 drop OU BID [facility] Last Admin: 07/31/20 09:02 Dose: 1 drop Documented by: Heparin Sodium (Porcine) (Heparin -) 5,000 unit SQ TID [facility] Last Admin: 07/31/20 05:57 Dose: 5,000 unit Documented by: Lactated Ringer's (Lactated Ringers Solution) 1,000 ml in 1,000 mls @ 100 mls/hr IV ASDIR [facility] Last Admin: 07/30/20 21:09 Dose: 100 mls/hr Documented by: Thiamine HCl (Vitamin B1 -) 100 mg PO DAILY [facility] Last Admin: 07/31/20 09:02 Dose: 100 mg Documented by: - Objective Vital Signs: Vital Signs Temperature 98.9 F 07/31/20 09:11 Pulse Rate 61 07/31/20 09:11 Respiratory Rate 16 07/31/20 09:11 Blood Pressure 116/67 07/31/20 09:11 O2 Sat by Pulse Oximetry (%) 98 07/31/20 09:11 Constitutional: Yes: Well Nourished, No Distress, Calm Cardiovascular: Yes: Regular Rate and Rhythm, S1, S2. No: Gallop, Murmur Respiratory: Yes: Regular, CTA Bilaterally. No: Rales Extremities: No: Cold Edema: No Neurological: Yes: Alert. No: Seizure Psychiatric: No: Agitated Labs: CBC, BMP 07/31/20 06:54 07/31/20 06:54 Assessment/Plan ECG 07/29: NSR, LAFB, NSTWAs (deep inverion V3). prolonged QT (manual 544 msec) T waves and QT normal on 07/23 tele: NSR, no events marked changes in T waves and QT interval vs 07/23: -nonspecific finding -not explained by electrolytes (all well-repleted) -possibly methadone effect (known to prolong QT)--on hold here -trop neg x 2 -cocaine abuse is risk factor for cardiomyopathy. EKG has normalized (normal T waves and normal QTc)--rec outpatient echo next week -pt ok for discharge from CV point of view - monitor K/Mag, replete routinely substance abuse: -per hospitalist team
--- NOTE | 2020-07-31 12:30 | DS ---
Physical Exam: SUBJECTIVE: Feeling much better - No further abdominal pain. No nausea/vomiting. No fever/chills. OBJECTIVE: Afebrile, Hemodynamically Stable. Tremor improved. Last Vital Signs Temp Pulse Resp BP Pulse Ox 98.9 F 61 16 116/67 98 07/31/20 09:11 07/31/20 09:11 07/31/20 09:11 07/31/20 09:11 07/31/20 09:11 HEENT - Atraumatic, Normocephalic. Heart - S1, S2, RRR Lungs - clear to auscultation Abdomen - Soft, mild generalized tenderness. Bowel Sounds normal. Extremities - Tremor UEs improved, no LE edema/calf tenderness. Neuro - AAO x 3. Tone/Power normal all extremities. Laboratory Results - last 24 hr 07/29/20 07/30/20 07/31/20 19:15 14:02 06:54 WBC 8.1 RBC 4.52 Hgb 13.9 Hct 41.0 MCV 90.7 MCH 30.9 MCHC 34.0 RDW 12.7 Plt Count 141 MPV 13.0 H Sodium Potassium Chloride Carbon Dioxide Anion Gap BUN Creatinine Est GFR (CKD-EPI)AfAm Est GFR (CKD-EPI)NonAf Random Glucose Calcium Phosphorus Magnesium Ammonia 24.30 COVID-19 (RAN) Not detected 07/31/20 06:54 WBC RBC Hgb Hct MCV MCH MCHC RDW Plt Count MPV Sodium 136 Potassium 3.9 Chloride 102 Carbon Dioxide 27 Anion Gap 7 L BUN 22.3 H Creatinine 0.8 Est GFR (CKD-EPI)AfAm 139.91 Est GFR (CKD-EPI)NonAf 120.72 Random Glucose 66 L Calcium 8.7 Phosphorus 3.2 Magnesium 1.2 L Ammonia COVID-19 (RAN) Discharge Medications Medication Instructions Recorded Albuterol Sulfate Inhaler - 2 puff IH QID PRN 07/24/20 [Ventolin HFA Inhaler -] Azithromycin Ophth Soln [Azasite 1 drop OU BID drops 07/31/20 1% Ophth Soln -] Thiamine HCl [Vitamin B1 -] 100 mg PO DAILY #0 tablet 07/31/20 Date of Admission:07/29/20 Date of Discharge: 07/31/20 Minutes to complete discharge: 35 Discharge Summary Problems reviewed: Yes Reason For Visit: AMS Current Active Problems Sedative dependence (Acute) Hospital Course: 30 year old Male with history of Polysubstance Abuse (cocaine, heroin, xanax), sent from [facility] with AMS and hallucinations, with new T wave changes. His COWS score was 11 and he was evaluated by Addiction Medicine and resumed on an accelerated Methadone taper, with which his symptoms improved/resolved. He was seen by Cardiology - his ECG changes and QTc all corrected. He was cleared by Cardiology for return to [facility], with recommenation for out-patient Cardio follow-up with out-patient Echo. 1. Acute Toxic Metabolic Encephalopathy/Drug Withdrawal - resolving CT Head - no acute findings. Utox pos for Methadone and Benzodiazepines. Afebrile, Hemodynamically stable Evaluated by Addiction Medicine - recommended to resume Methadone taper - received Methadone 20mg 07/30 and 10mg 07/31. Further detox dosing as per Addiction Medicine. 2. Non-specific ECG changes, likely sec to Methadone No chest pain TropI neg x 3 CXR - no acute findings Evaluated by Cardio - given normalization of ECG findings (QTc 422), patient was cleared for out-patient Echo and follow up. 3. Acute Rhabdomyolysis - resolved with IV hydration. 4. Hypomagnesemia - repleted. Medically stable for transfer back to [facility]. Dr. Wills informed. Condition: Fair - Instructions Diet, Activity, Other Instructions: You were admitted from [facility] due to concern for mental status changes and hallucinations, likely related to your substance abuse/withdrawals. You were found to have non-specific ECG changes, likely related to your Methadone detox protocol, all of which have been corrected. You were seen and cleared for discharge by Cardiology with out-patient follow up for Echo. Please follow with Cardiology in 1 week You were also given an appt with Dr. Vera to establish Primary Care provision for health maintenance. Referrals: Asher Vera MD [Staff Physician] - 1 Week (to establish [facility] Care services) Levy Zuñiga MD [Staff Physician] - 1 Week (for Outpatient Echo and fo llow up of ECG changes) Disposition: I.P. ALCOHOL/SUBS ABUSE REHAB - Home Medications Comprehensive Discharge Medication List: Ambulatory Orders Albuterol Sulfate Inhaler - [Ventolin HFA Inhaler -] 2 puff IH QID PRN 07/24/20 Azithromycin Ophth Soln [Azasite 1% Ophth Soln -] 1 drop OU BID drops 07/31/20 Thiamine HCl [Vitamin B1 -] 100 mg PO DAILY #0 tablet 07/31/20 This patient is new to me today: No Emergency Visit: Yes ED Registration Date: 07/29/20 Care time: The patient presented to the Emergency Department on the above date and was hospitalized for further evaluation of their emergent condition. Critical Care patient: No - Discharge Referral Referred to [facility] Med P.C.: No
[2020-07-31 14:32] VITALS: BP 129/77; PULSE 68; TEMP 98.2
--- NOTE | 2020-08-01 10:56 | EKG ---
Test Reason : Blood Pressure : / mmHG Vent. Rate : 055 BPM Atrial Rate : 055 BPM P-R Int : 120 ms QRS Dur : 094 ms QT Int : 442 ms P-R-T Axes : 062 -63 074 degrees QTc Int : 422 ms SINUS BRADYCARDIA LEFT ANTERIOR FASCICULAR BLOCK ABNORMAL ECG WHEN COMPARED WITH ECG OF 30-JUL-2020 09:14, T WAVE VARIATION Confirmed by JERMAINE RIGGS MD ([id number]) on 08/01/2020 10:56:30 AM Referred By: Maria Luisa GUARDADO Confirmed By:JERMAINE RIGGS MD
--- NOTE | 2020-08-01 11:14 | EKG ---
Test Reason : Blood Pressure : / mmHG Vent. Rate : 054 BPM Atrial Rate : 054 BPM P-R Int : 120 ms QRS Dur : 088 ms QT Int : 426 ms P-R-T Axes : 082 000 081 degrees QTc Int : 403 ms SINUS BRADYCARDIA NONSPECIFIC T WAVE ABNORMALITY WHEN COMPARED WITH ECG OF 29 JUL 2020 NO SIGNIFICANT CHANGE WAS FOUND Confirmed by JERMAINE RIGGS MD ([id number]) on 08/01/2020 11:13:39 AM Referred By: Maria Luisa GUARDADO Confirmed By:JERMAINE RIGGS MD
== END 2020-07-31 17:00 | disposition other institution (70) | DRG 52 ==
LOC: JER 08:34 → JERBED 19:30 → J4S 20:32
PROVIDERS: ADMIT Internal Medicine
DX: G92 Toxic encephalopathy (principal); I44.4 Left anterior fascicular block; F11.23 Opioid dependence with withdrawal; R41.82 Altered mental status, unspecified; D72.829 Elevated white blood cell count, unspecified; M62.82 Rhabdomyolysis; E83.42 Hypomagnesemia; F17.210 Nicotine dependence, cigarettes, uncomplicated; E86.0 Dehydration; J45.20 Mild intermittent asthma, uncomplicated; J34.89 Other specified disorders of nose and nasal sinuses; H04.209 Unspecified epiphora, unspecified side; H55.09 Other forms of nystagmus; F14.10 Cocaine abuse, uncomplicated; F12.10 Cannabis abuse, uncomplicated; F11.251 Opioid dependence with opioid-induced psychotic disorder with hallucinations; F11.221 Opioid dependence with intoxication delirium; F13.20 Sedative, hypnotic or anxiolytic dependence, uncomplicated; R00.1 Bradycardia, unspecified
CPT/HCPCS: 36415; 70450-TC; 71045-TC-FY; 80048; 80053; 80307; 81003; 82140; 82550; 82553; 82803; 82962; 83735; 84100; 84484; 85025; 85027; 87389; 93005; 93010; 99285-25; J1644; U0003

== ENCOUNTER 2020-07-31 17:46 | Inpatient (IN) | payer OTHER ==
--- NOTE | 2020-07-31 19:02 | PN ---
[facility] Progress Note Note: this 30 years old male with heroin dependence and xanax dependence admitted on 07/23/20 to 07/29/20, admitted at [facility] form 07/29/20 to 07/31/20 rceiving iv hydration; medically clear to return to [facility] , patient on taper down of methadone regimen receiving methadone 10 mgs today,schedule to receive 5 mgs tomorrow and for further placement alerted oriented x 3 lung clear on auscultation bilaterally abdomen soft,no distension,no pain,no tenderness no selling of extremities impression opioid dependence with withdrawal uncompl sedative dependence history of dehydration treatment admit to detox for continue methadone regimen for 5 mgs in am discharge in am for further level of care kristal 0.000,bp 107/75,p64,r18,t98.1
[2020-07-31] MEDS ORDERED: BISMUTH SUBSALICYLATE 524 MG/30 ML UD PO PRN (19:26)
[2020-07-31] MEDS ORDERED: hydrOXYzine PAMOATE 25 MG CAPSULE (FP) PO PRN (19:26)
[2020-07-31] MEDS ORDERED: METHOCARBAMOL 500 MG TABLET PO PRN (19:26)
[2020-07-31] MEDS ORDERED: MAG HYDROX/AL HYDROX/SIMETH 30 ML UNIT-DOSE CUP PO PRN (19:26)
[2020-07-31] MEDS ORDERED: ACETAMINOPHEN 325 MG TABLET (FP) PO PRN ×2 (19:26)
[2020-07-31] MEDS ORDERED: IBUPROFEN 400 MG TABLET (FP) PO PRN (19:26)
[2020-07-31] MEDS ORDERED: ONDANSETRON *ODT* 4 MG TABLET SL PRN (19:26)
[2020-07-31] MEDS ORDERED: MAGNESIUM CITRATE 300 ML BOTTLE PO PRN (19:26)
[2020-07-31] MEDS ORDERED: MAGNESIUM HYDROX 2400MG/30ML ORAL SUSPENSION 30 ML CUP PO PRN (19:26)
[2020-07-31] MEDS ORDERED: MENTHOL/PHENOL 1 EACH UD MM PRN (19:26)
[2020-07-31] MEDS ORDERED: ALBUTEROL SO4 HFA INHALER IH PRN (19:31)
[2020-07-31 19:57] VITALS: BMI 17.2
[2020-07-31] MEDS ORDERED: MELATONIN 5 MG TABLETS PO SCH (22:00)
[2020-07-31] MEDS ORDERED: THIAMINE HCL 100 MG TABLET (FP) PO SCH (22:00)
[2020-08-01] MEDS ORDERED: METHADONE HCL 5 MG TABLET (FOR DETOX USE ONLY) PO ONE (06:00)
[2020-08-01] MEDS ORDERED: PRENATAL VITAMINS W/ FOLIC ACID TABLET (FP) PO SCH (10:00)
--- NOTE | 2020-08-01 10:46 | PN ---
[facility] CIWA - CIWA Score Nausea/Vomitin-No Nausea/No Vomiting Muscle Tremors: None Anxiety: 1-Mildly Anxious Agitation: 0-Normal Activity Paroxysmal Sweats: No Perspiration Orientation: 0-Oriented Tacttile Disturbances: 0-None Auditory Disturbances: 0-None Visual Disturbances: 0-None Headache: 0-None Present CIWA-Ar Total Score: 1 S Progress Note (SOAP) Subjective: alert,no complaint Objective: 08/01/20 10:40 Vital Signs Temperature 98.4 F 08/01/20 05:20 Pulse Rate 54 L 08/01/20 05:20 Respiratory Rate 20 08/01/20 05:20 Blood Pressure 112/67 08/01/20 05:20 O2 Sat by Pulse Oximetry (%) 100 08/01/20 05:20 Assessment: 08/01/20 10:40 detox completed,no withdrawal symptom Plan: stable for discharge today,follow up with after care program as arrangement [facility]
--- NOTE | 2020-08-01 10:56 | DS ---
[facility] Detox Discharge Summary Admission Date: 07/31/20 Discharge Date: 08/01/20 - History Present History: Opioid Dependence, Sedative Dependence Additional Comments: alert,oriented x 3 lung clear on auscultation abdomen soft,no pain,no tenderness no calf tenderness stable for discharge today follow up with after care program as arrangement Pertinent Past History: asthma - Physical Exam Results Vital Signs: Vital Signs Temperature 98.4 F 08/01/20 05:20 Pulse Rate 54 L 08/01/20 05:20 Respiratory Rate 20 08/01/20 05:20 Blood Pressure 112/67 08/01/20 05:20 O2 Sat by Pulse Oximetry (%) 100 08/01/20 05:20 Pertinent Admission Physical Exam Findings: withdrawal sins and symptom - Treatment Hospital Course: Detox Protocol Followed, Detoxed Safely, Responded well, Discharged Condition Good, Rehab Referral Accepted Patient has Accepted a Rehab Referral to: [facility] - Medication Discharge Medications: Ambulatory Orders Albuterol Sulfate Inhaler - [Ventolin HFA Inhaler -] 2 puff IH QID PRN 07/24/20 Azithromycin Ophth Soln [Azasite 1% Ophth Soln -] 1 drop OU BID drops 07/31/20 Thiamine HCl [Vitamin B1 -] 100 mg PO DAILY #0 tablet 07/31/20 - Diagnosis (1) Opioid dependence with withdrawal Current Visit: No Status: Acute (2) Sedative dependence Current Visit: No Status: Acute (3) Asthma Current Visit: No Status: Chronic Qualifiers: (4) Nicotine dependence Current Visit: No Status: Chronic Qualifiers: (5) Dehydration Current Visit: Yes Status: Acute - AMA Did Patient Leave Against Medical Advice: No
[2020-08-01 11:09] VITALS: BP 108/68; PULSE 65; TEMP 98.9
== END 2020-08-01 13:27 | disposition other institution (70) | DRG 773 ==
LOC: YASAS 17:46 → Y6N 19:03
PROVIDERS: ADMIT Allergy & Immunology; ATTEND Allergy & Immunology
PROC: HZ2ZZZZ Detoxification Services for Substance Abuse Treatment (ICD-10-PCS; principal; 2020-07-31)
DX: F11.20 Opioid dependence, uncomplicated (principal); F13.20 Sedative, hypnotic or anxiolytic dependence, uncomplicated; F17.210 Nicotine dependence, cigarettes, uncomplicated; E86.0 Dehydration; J45.909 Unspecified asthma, uncomplicated

== ENCOUNTER 2020-08-01 13:38 | Inpatient (IN) | payer OTHER ==
--- OUTSIDE RECORDS SUMMARY | 2020-08-01 14:29 | XMS ---
:1990 [facility] Support Name Relationship Address Phone UE, UNEMPLOYED Unavailable Unavailable Unavailable UE Unavailable Unavailable Unavailable ALEXIS PETERSON MOTHER [address] [place] [address] JANET, DARVIN FRIEND [address] [place] [address] ALEXIS PETERSON Mother [address] [place] [address] Re-disclosure Warning The records that you are about to access may contain information from federally- assisted alcohol or drug abuse programs. If such information is present, then the following federally mandated warning applies: This information has been disclosed to you from records protected by federal confidentiality rules (42 CFR part 2). The federal rules prohibit you from making any further disclosure of this information unless further disclosure is expressly permitted by the written consent of the person to whom it pertains or as otherwise permitted by 42 CFR part 2. A general authorization for the release of medical or other information is NOT sufficient for this purpose. The Federal rules restrict any use of the information to criminally investigate or prosecute any alcohol or drug abuse patient.The records that you are about to access may contain highly sensitive health information, the redisclosure of which is protected by Article 27-F of the [facility] Public Health law. If you continue you may haveaccess to information: Regarding HIV / AIDS; Provided by facilities licensed or operated by the [facility] Office of Mental Health; or Provided by the [facility] Office for People With Developmental Disabilities. If such information is present, then the following [facility] mandated warning applies: This information has been disclosed to you from confidential records which are protected by state law. State law prohibits you from making any further disclosure of this information without the specific written consent of the person to whom it pertains, or as otherwise permitted by law. Any unauthorized further disclosure in violation of state law may result in a fine or senior living sentence or both. A general authorization for the release of medical or other information is NOT sufficient authorization for further disclosure. Insurance Providers Payer name Policy type Policy ID Covered Covered libertarian's Policy P boo / Coverage libertarian ID relationship to [employer] type [employer] [id number] SP [id number] FIRST Results ID Date Data Source [id number] 07/29/2020 07:15:00 PM EDT [facility] Name Value Range Interpretation Description Data Sup porting Code Source(s) Document(s ) SARS [facility] coronavirus 2 RNA This lab was ordered by [facility] and reported by [facility]. ID Date Data Source [id number] 07/23/2020 10:59:00 PM EDT [facility] Name Value Range Interpretation Description Data Sup porting Code Source(s) Document(s ) SARS [facility] coronavirus 2 RNA This lab was ordered by [facility] Matt Hester and reported by [facility]. ID Date Data Source [id number] 02/28/2020 12:00:00 AM EDT [facility] Name Value Range Interpretation Code Description Data Rocio rce(s) Supporting Document(s ) 2019-nCoV [facility] RNA XXX RAN+probe- Imp This lab was ordered by [facility] and reported by [facility] Procedure
--- OUTSIDE RECORDS SUMMARY | 2020-08-01 14:34 | XMS ---
:1990 [facility] Support Name Relationship Address Phone UE, UNEMPLOYED Unavailable Unavailable Unavailable UE Unavailable Unavailable Unavailable ALEXIS PETERSON MOTHER [address] [place] [address] [phone] [place] [address] JANET, DARVIN FRIEND [address] [place] [address] ALEXIS PETERSON Mother [address] [place] [address] [place] [address] Re-disclosure Warning The records that you are [...] is protected by Article 27-F of the [facility] Public Health law. If you continue you may haveaccess to information: Regarding HIV / AIDS; Provided by facilities licensed or operated by the [facility] Office of Mental Health; or Provided by the [facility] Office for People With Developmental Disabilities. If such information is present, then the following [facility] mandated warning applies: This information has been [...] law may result in a fine or group home sentence or both. A general authorization for the release of medical or other information is NOT sufficient authorization for further disclosure. Insurance Providers Payer name Policy type Policy ID Covered Covered green party's Policy P boo / Coverage green party ID relationship to [employer] orm[employer] type [employer] HE[employer] [id number] SP [id number] FIRST Results ID Date Data Source [id number] 07/29/2020 07:15:00 PM EDT [facility] Name Value Range Interpretation Description Data Sup porting Code Source(s) Document(s ) SARS [facility] coronavirus 2 RNA This lab was ordered by [facility] and reported by [facility]. ID Date Data Source [id number] 07/23/2020 10:59:00 PM EDT [facility] Name Value Range Interpretation Description Data Sup porting Code Source(s) Document(s ) SARS [facility] coronavirus 2 RNA This lab was ordered by [facility] Matt Hester and reported by [facility]. ID Date Data Source [id number] 02/28/2020 12:00:00 AM EDT [facility] Name Value Range Interpretation Code Description Data Rocio rce(s) Supporting Document(s ) 2019-nCoV [facility] RNA XXX RAN+probe- Imp This lab was ordered by [facility] and reported by [employer] [facility] Procedure
--- NOTE | 2020-08-01 14:53 | HP ---
[facility] Rehab Assess/Revision - Admission History Admitted to Rehab from: [address] Date of Admission to Rehab: 08/01/20 - Findings Detox History & Physical reviewed: Yes Concur with findings: Yes Comments/Additional Findings: Pt is a 30 y/o male admitted to rehab from [address] [place] [address] today. Provider reports pt was evaluated/treated with hydration at [facility] on 07/29/20 - 07/31/20 and sent back to [facility]. PMHx:Asthma. Psych Hx;Denies. Alert o x 3, slender appearing male. nad. oob ambulating with steady gait. extremities:no edema, tattoos on lower legs. Skin intact. New Rehab pt. Increase po fluids. Ensure plus 1 can po tid. Dietary consult in a.m. Inpatient Rehab Admission - Rehab Decision to Admit Inpatient rehab admission?: Yes - Initial Determination Are CD services needed?: Yes Free of communicable disease: Yes Not in need of hospitalization: Yes - Rehab Admission Criteria Previous failed treatment: Yes Poor recovery environment: Yes Comorbidities: Yes Lacks judgement: Yes Patient is meeting Inpatient Rehab admission criteria:: Yes
[2020-08-01] MEDS ORDERED: MAGNESIUM HYDROX 2400MG/30ML ORAL SUSPENSION 30 ML CUP PO PRN (14:55)
[2020-08-01] MEDS ORDERED: MAG HYDROX/AL HYDROX/SIMETH 30 ML UNIT-DOSE CUP PO PRN (14:55)
[2020-08-01] MEDS ORDERED: IBUPROFEN 400 MG TABLET (FP) PO PRN (14:55)
[2020-08-01] MEDS ORDERED: guaiFENesin 200 MG/10 ML 10 ML UNIT-DOSE CUPS PO PRN (14:55)
[2020-08-01] MEDS ORDERED: MENTHOL/PHENOL 1 EACH UD MM PRN (14:55)
[2020-08-01] MEDS ORDERED: LOPERAMIDE HCL 2 MG CAPSULE PO PRN (14:55)
[2020-08-01] MEDS ORDERED: ACETAMINOPHEN 325 MG TABLET (FP) PO PRN (14:55)
[2020-08-01] MEDS ORDERED: P-EPHED 60MG/TRIPROLIDI 2.5MG TABLET PO PRN (14:55)
[2020-08-01] MEDS ORDERED: NICOTINE POLACRILEX 2 MG GUM BUC PRN (14:55)
[2020-08-01] MEDS ORDERED: MAGNESIUM CITRATE 300 ML BOTTLE PO PRN (14:55)
[2020-08-01] MEDS: THIAMINE HCL 100 MG TABLET (FP) PO SCH (21:42)
[2020-08-01] MEDS: MELATONIN 5 MG TABLETS PO SCH (21:44)
[2020-08-02] MEDS: PRENATAL VITAMINS W/ FOLIC ACID TABLET (FP) PO SCH (10:32)
[2020-08-02] MEDS: NICOTINE 7 MG/24 HOURS TOPICAL PATCH TD SCH (10:32)
[2020-08-02] MEDS: hydrOXYzine PAMOATE 25 MG CAPSULE (FP) PO PRN ×2 (10:33→21:39)
[2020-08-02] MEDS: MELATONIN 5 MG TABLETS PO SCH (21:39)
[2020-08-02] MEDS: THIAMINE HCL 100 MG TABLET (FP) PO SCH (21:39)
[2020-08-03] MEDS: NICOTINE 7 MG/24 HOURS TOPICAL PATCH TD SCH (12:36)
[2020-08-03] MEDS: PRENATAL VITAMINS W/ FOLIC ACID TABLET (FP) PO SCH (12:36)
[2020-08-03] MEDS: hydrOXYzine PAMOATE 25 MG CAPSULE (FP) PO PRN ×2 (12:37→21:49)
[2020-08-03] MEDS: THIAMINE HCL 100 MG TABLET (FP) PO SCH (21:49)
[2020-08-03] MEDS: MELATONIN 5 MG TABLETS PO SCH (21:50)
[2020-08-04] MEDS: NICOTINE 7 MG/24 HOURS TOPICAL PATCH TD SCH (09:42)
[2020-08-04] MEDS: PRENATAL VITAMINS W/ FOLIC ACID TABLET (FP) PO SCH (09:42)
[2020-08-04] MEDS ORDERED: ALBUTEROL SO4 HFA INHALER IH PRN (10:05)
--- NOTE | 2020-08-04 16:26 | PN ---
[facility] Progress Note Note: Pt met with counselor Betsy Stockton and wants to be started on Suboxone MAT. Pt reports no previous treatment with Suboxone. S/P detox from [address] C/o withdrawal s/s of back pain, insomnia, decreased appetite, sweats, fatigue. Vital Signs - 24 hr 08/03/20 08/04/20 08/04/20 20:17 06:57 12:58 Temperature 98.6 F Pulse Rate 63 Respiratory 18 Rate Blood Pressure 117/75 O2 Sat by Pulse 98 94 L 95 Oximetry (%) Alert o x 3 nad oob ambulating with steady gait maintain safety Utox for Suboxone MAT follow up with pt in the morning for evaluation and treatment. Others' Prescriptions ADDENDUM Verification of [facility] use of Suboxone from [facility] online: Contrary to earlier information from patient at initial interview, pt had been on Suboxone MAT previously as below. Pt will be restarted on Suboxone and will continue when referred to [facility] for CD aftercare as recommended by his Electric Lineman Ms Betsy Stockton. Other' Prescriptions Patient Name: Demetrius Hillman Date: 1990 Address: [address] [place], [place] [address]Rec: Male Rx Written Rx Dispensed Drug Quantity Days Supply Prescriber Name Payment Method Dispenser 12/08/2019 01/04/2020 buprenorphine-naloxone 8-2 mg sl film 30 30 Gadh, [place] [facility] 12/09/2019 12/09/2019 buprenorphine-naloxone 8-2 mg sl film 30 30 Gadh, [place] [facility], [facility] 12/08/2019 12/08/2019 dextroamp-amphetamin 10 mg tab 60 30 Gadh, [place] [facility] 11/09/2019 11/09/2019 dextroamp-amphetamin 10 mg tab 60 30 Gadh, [place] [facility], [facility] 11/09/2019 11/09/2019 buprenorphine-naloxone 8-2 mg sl film 30 30 Gadh, [place] [facility], [facility] 10/14/2019 10/14/2019 dextroamp-amphetamin 10 mg tab 60 30 Gadh, [place] [facility], [facility] 10/14/2019 10/14/2019 buprenorphine-naloxone 8-2 mg sl film 30 30 Gadh, Sudhir [facility], [facility] * - Drugs marked with an asterisk are compound drugs. If the compound drug is made up of more than one controlled substance, then each controlled substance will be a separate row in the table.
[2020-08-04] MEDS: THIAMINE HCL 100 MG TABLET (FP) PO SCH (21:31)
[2020-08-04] MEDS: MELATONIN 5 MG TABLETS PO SCH (21:31)
[2020-08-05 07:13] VITALS: BP 113/70; PULSE 83; TEMP 97.3
--- NOTE | 2020-08-05 09:51 | DS ---
[facility] Rehab Discharge Summary - [facility] Rehab Discharge Summary Admission Date: 08/01/20 Discharge Date: 08/05/20 - History Present History: Cannabis dependence, Cocaine dependence, Opioid dependence, Sedative dependence Pertinent Past History: Asthma - Discharge Physical Exam Vital Signs: Vital Signs Temperature 97.3 F L 08/05/20 06:31 Pulse Rate 83 08/05/20 06:31 Respiratory Rate 18 08/05/20 06:31 Blood Pressure 113/70 08/05/20 06:31 O2 Sat by Pulse Oximetry (%) 98 08/05/20 06:31 General:Alert o x 3, thin , tall male, in nad cardiac:s1 s2, rrr lungs:ctab abdomen:soft, +bs,nt,nd MSK:Active FROM,all limbs;no edema Skin:warm,dry and intact Pertinent Admission Physical Exam Findings: S/P detox Fatigue and general malaise on admission from detox. - Treatment Discharge Condition: Discharge condition good, Rehabilitated safely, Responded well, Outpatient referral accepted Hospital Course: Pt is a 30 y/o male with a DAVID-Heroin,cocaine,xanax admitted to rehab after detox treatment. Pt was admitted to [address] on 07/23/20 and transferred to [facility] ER for medical evaluation due to AMS(Altered Mental Status). As per admission note, after treatment and stabilization with I.V fluid. Pt requested to be started on Suboxone here in treatment but declined to start today stating he would rather discharge today and go back to restart at his clinic @ [facility]. Pt reports he has primary care with [facility] with an appointment on 08/15/20. - Medication Discharge Medications: Ambulatory Orders Albuterol Sulfate Inhaler - [Ventolin HFA Inhaler -] 2 puff IH QID PRN 07/24/20 Azithromycin Ophth Soln [Azasite 1% Ophth Soln -] 1 drop OU BID drops 07/31/20 Thiamine HCl [Vitamin B1 -] 100 mg PO DAILY #0 tablet 07/31/20 - Medication-Assisted Treatment (MAT) Medication-Assisted Treatment (MAT): Yes Medication Prescribed: Suboxone (Pt was previously on suboxone treatment but relapsed and wants to go back to his outpatient clinic of [place], [place] to continue care.) - Discharge Instructions Diet, activity, other medical instructions: Diet:regular Activity:oob ad justus Other medical instructions:follow up with CD aftercare/Suboxone MAT to [place] as recommended on 08/08/20. Follow up with your PCP @ [facility] clinic on 08/15/20 as scheduled. - Diagnosis (1) Opioid use disorder Status: Chronic (2) Cannabis dependence, uncomplicated Status: Chronic (3) Cocaine dependence, uncomplicated Status: Chronic (4) Sedative dependence Status: Chronic (5) Asthma Status: Chronic Qualifiers: Asthma severity: unspecified severity Asthma persistence: unspecified Asthma complication type: unspecified Qualified Code(s): J45.909 - Unspecified asthma, uncomplicated (6) Nicotine dependence Status: Chronic Qualifiers: Nicotine product type: cigarettes Substance use status: uncomplicated Qualified Code(s): F17.210 - Nicotine dependence, cigarettes, uncomplicated - Follow-up Referral Minutes to complete discharge: 25 - AMA Did Patient Leave Against Medical Advice: No
[2020-08-05] MEDS: PRENATAL VITAMINS W/ FOLIC ACID TABLET (FP) PO SCH (11:13)
[2020-08-05] MEDS: NICOTINE 7 MG/24 HOURS TOPICAL PATCH TD SCH (11:13)
== END 2020-08-05 09:20 | disposition home or self-care (01) | DRG 772 ==
LOC: YASAS 13:38 → Y5N 13:41
PROVIDERS: ADMIT Allergy & Immunology; ATTEND Allergy & Immunology
PROC: HZ42ZZZ Group Counseling for Substance Abuse Treatment, Cognitive-Behavioral (ICD-10-PCS; principal; 2020-08-01)
DX: F10.20 Alcohol dependence, uncomplicated (principal); F14.20 Cocaine dependence, uncomplicated; F13.20 Sedative, hypnotic or anxiolytic dependence, uncomplicated; F12.20 Cannabis dependence, uncomplicated; F17.210 Nicotine dependence, cigarettes, uncomplicated; J45.909 Unspecified asthma, uncomplicated